=== PATIENT | male | born 1950 | race African-American/Black ===

== ENCOUNTER 2016-09-13 00:12 | Inpatient (IN) | payer OTHER ==
[2016-09-12 02:22] VITALS: BP 147/82; PULSE 82; RESP 20; TEMP 98.3; O2SAT 98
[~2016-09-13] VITALS: Ht 167.6 cm; Wt 106.3 kg
[~2016-09-13 00:12] MED LIST: ADVA250A INH; ALBU17I INH; ALBU6.7H INH; BETH10TA PO; CETI10 PO; CITR500T PO; DUONI NEB; FURO1TAB93 PO; IBUP600T26 PO; LEXA10TA PO; LEXA20TA PO; LISI40TA PO; LORTA5 PO; METO50 PO; NORV10TA PO; NOVOLOGSS; PRED20 PO; PROT40TA PO; REGL5TAB PO; SERO200T PO; TEKT300T PO; TEMA15 PO; TRAM50 PO; VENL75 PO; VITA100020 IM
[2016-09-13 01:40] VITALS: BP 147/82; PULSE 82; RESP 20; TEMP 98.3; O2SAT 98
[2016-09-13] MEDS ORDERED: CETIRIZINE HCL SYRUP 10 MG/10 ML UDC PO PRN (02:45)
[2016-09-13] MEDS ORDERED: BENZONATATE 100 MG CAP PO PRN (02:45)
[2016-09-13] MEDS ORDERED: ALBUTEROL SULFATE 90 MCG/ACT HFA 8 GM INHALER INH PRN ×2 (03:00→08:45)
[2016-09-13] MEDS ORDERED: guaiFENesin/DEXTROMETHORPHAN 200 MG/20 MG/10 ML CUP PO PRN (03:00)
[2016-09-13 06:25] VITALS: BP 128/71; PULSE 71; RESP 16; TEMP 97.8; O2SAT 99
[2016-09-13] MEDS ORDERED: ALBUTEROL SULFATE INH SCH (08:45)
[2016-09-13] MEDS ORDERED: PILL SPLITTER OTHER PRN (09:00)
[2016-09-13] MEDS ORDERED: FAMOTIDINE 20 MG TAB PO SCH (09:00)
[2016-09-13] MEDS ORDERED: METOPROLOL TARTRATE 50 MG TAB PO SCH ×2 (09:00)
[2016-09-13] MEDS ORDERED: ARTIFICIAL TEARS OPTH SOLN 15 ML BTL EACH EYE SCH (09:00)
[2016-09-13] MEDS ORDERED: METHYLCELLULOSE 1000 MG PO SCH (09:00)
[2016-09-13] MEDS ORDERED: DOCUSATE SODIUM 100 MG CAP PO SCH (09:00)
[2016-09-13] MEDS ORDERED: [UNRECOGNIZED DRUG - OTHER] PO SCH (09:00)
[2016-09-13] MEDS ORDERED: FUROSEMIDE 20 MG TAB PO SCH ×2 (09:00)
[2016-09-13] MEDS: DOCUSATE SODIUM 100 MG CAP PO SCH ×2 (09:00→20:28)
[2016-09-13] MEDS ORDERED: VENLAFAXINE HCL XR 75 MG CAP PO SCH ×2 (09:00)
[2016-09-13] MEDS ORDERED: LISINOPRIL 20 MG TAB PO SCH (09:00)
[2016-09-13] MEDS ORDERED: SPIRONOLACTONE 25 MG TAB PO SCH (09:00)
[2016-09-13] MEDS ORDERED: CYANOCOBALAMIN 1000 MCG/ML VIAL IM SCH (09:00)
[2016-09-13] MEDS ORDERED: BUDESONIDE-FORMOTEROL 160/4.5 MCG INHALER INH SCH ×3 (09:00)
[2016-09-13] MEDS: BETHANECHOL CHL 10 MG TAB PO SCH ×3 (09:28→17:20)
[2016-09-13] MEDS: FAMOTIDINE 20 MG TAB PO SCH ×2 (09:29→20:28)
[2016-09-13] MEDS: SPIRONOLACTONE 25 MG TAB PO SCH (09:29)
[2016-09-13] MEDS: METOPROLOL TARTRATE 50 MG TAB PO SCH ×2 (09:29→20:28)
[2016-09-13] MEDS: LISINOPRIL 20 MG TAB PO SCH (09:30)
[2016-09-13] MEDS: VENLAFAXINE HCL XR 75 MG CAP PO SCH (09:30)
[2016-09-13] MEDS: ESCITALOPRAM OXALATE 20 MG TAB PO SCH (09:34)
[2016-09-13] MEDS: FUROSEMIDE 40 MG TAB PO SCH (09:34)
[2016-09-13] MEDS: PANTOPRAZOLE SOD 40 MG DELAYED RELEASE TAB PO SCH ×2 (09:34→20:28)
[2016-09-13] MEDS: ARTIFICIAL TEARS OPTH SOLN 15 ML BTL EACH EYE SCH ×2 (09:35→20:31)
--- NOTE | 2016-09-13 11:24 | HHI.HP ---
Provisional Diagnosis Admission Date Sep 13, 2016 at 01:36 [place] I. Major depressive disorder recurrent severe with psychotic features F 33.3 dementia with behavioral disturbances F of 3.91 Certification of Person's Competence To Provide Express and Informed Consent I have personally examined David Solitario , a person being served at [facility] on, Sep 13, 2016 10:44. Express and informed consent means consent voluntarily given in writing, by a competent person, after sufficient explanation and disclosure of the subject matter involved to enable the person to make a knowing and willful decision without any element of force, fraud, deceit, duress, or other form of constraint or coercion. This person is 18 years of age or older, is not now known to be incompetent to consent to treatment with a guardian advocate, and does not have a health care surrogate or proxy currently making medical treatment decisions. I have found this person to be one of the following: [] Competent to provide express and informed consent, as defined above, for voluntary admission to this facility and is competent to provide express and informed consent for treatment. He/she has the consistent capacity to make well reasoned, willful, and knowing decisions concerning his or her medical or mental health treatment. The person fully and consistently understands the purpose of the admission for examination/placement and is fully capable of personally exercising all rights assured under [place] [] Incompetent to provide express and informed consent to voluntary admission, and this is incompetent to provide express and informed consent to treatment. The person must be transferred to involuntary status and a petition for a guardian advocate filed with the Circuit Court. [x] Refusing to provide express and informed consent to voluntary admission but is competent to provide express and informed consent for treatment. The person must be discharged or transferred to involuntary status. Form shall be completed within 24 hours of a person's arrival at the receiving facility and filed in the clinical record of each person: 1. Admitted on a voluntary basis 2. Permitted to provide express and informed consent to his/her own treatment 3. Allowed to transfer from involuntary to voluntary status 4. Prior to permitting a person to consent to his or her own treatment after having been previously found incompetent to consent to treatment. History of Present Illness Capacity: Has Capacity HPI Patient is a 66-year-old Afro-[place]ape [place]dean male initially brought to [facility] after suicide attempt by inhaling aerosol deodorant spray patient was Garcia acted at that facility dated 09/12/19 by a Scottie Dempsey at 1830 p.m. stating in the old deodorant aerosol spray as a suicidal attempt. Patient seen screen of at ED urine toxicology negative bladder alcohol level negative. At the present time patient sitting quietly in his room with nurse Thang and myself. Patient is alert to self and place though somewhat confused as to time and situation. Is a was somewhat confusing history about perhaps living in a PRISON at this time is uncertain how long he has been there. He does see his head increased depression stating his adult son of less than a year ago is causing him to be depressed, also recalling the of other patient's in his family of origin. He states he does sleep okay and his appetite is okay, there is some increased social isolation and some irritability. There is a the past week or 2 the increase suicidal ideation. With the suicide attempt. Denies any alcohol or drug use related to this. Of interest patient has extensive EMR record with us here at [facility] is been documentation of various suicide attempts in the past few years including ingestion of bleach twice. I did do a consultation on this gentleman in the summer of 2012 for similar episode. Patient also has a past history though a long history of cocaine abuse with multiple positive urine toxicology's at this facility. He also has been followed for multiple medical conditions including COPD diabetes. Patient stated that sometime in this in the fairly recent past he did have a visual hallucination of his father coming into his room. At this time patient does meet criteria for involuntary psychiatric hospitalization under the Garcia act I'll do first opinion requests second opinion. Though I do feel he has capacity to work with us related to his medication. We will have a hospitalist consult was patient does have an extensive medication reconciliation list. The need to gain further information about patient's living situation also. For now we'll continue her psychotropic medications no change Review of Systems ROS Limitations: Altered Mental Status (somewhat confused) Constitutional: DENIES: Diaphoretic episodes, Fatigue, Fever, Weight gain, Weight loss, Chills, Dizziness, Change in appetite, Night Sweats Endocrine: DENIES: Heat/cold intolerance, Polydipsia, Polyuria, Polyphagia Eyes: DENIES: Blurred vision, Diplopia, Eye inflammation, Eye pain, Vision loss , Photosensitivity, Double Vision Ears, nose, mouth, throat: DENIES: Tinnitus, Hearing loss, Vertigo, Nasal discharge, Oral lesions, Throat pain, Hoarseness, Ear Pain, Running Nose, Epistaxis, Sinus Pain, Toothache, Odynophagia Respiratory: DENIES: Apneas, Cough, Snoring, Wheezing, Hemoptysis, Sputum production, Shortness of breath Cardiovascular: DENIES: Chest pain, Palpitations, Syncope, Dyspnea on Exertion , PND, Lower Extremity Edema, Orthopnea, Claudication Gastrointestinal: DENIES: Abdominal pain, Black stools, Bloody stools, Constipation, Diarrhea, Nausea, Vomiting, Difficulty Swallowing, Anorexia Genitourinary: DENIES: Sexual dysfunction, Urinary frequency, Urinary incontinence, Urgency, Hematuria, Dysuria, Nocturia, Penile Discharge, Testicular Pain, Testicular Swelling Musculoskeletal: DENIES: Joint pain, Muscle aches, Stiffness, Joint Swelling, Back pain, Neck pain Integumentary: DENIES: Abnormal pigmentation, Nail changes, Pruritus, Rash Hematologic/lymphatic: DENIES: Bruising, Lymphadenopathy Immunologic/allergic: DENIES: Eczema, Urticaria Neurologic: DENIES: Abnormal gait, Headache, Localized weakness, Paresthesias, Seizures, Speech Problems, Tremor, Poor Balance Psychiatric: COMPLAINS OF: Confusion (mild), Depression, Hallucinations (vague referral to visual hallu), Suicidal Ideation (overdose inhaling deodorant aerosol), DENIES: Anxiety, Mood changes, Agitation, Homicidal Ideation, Delusions Past Psych History Psychological trauma history Patient denies physical or sexual abuse Violence risk - others (6 mos) Low Violence risk - self (6 mos) Patient had suicide attempt inhaling deodorant aerosol Substance Abuse History Drugs/Alcohol past 12 months Denies Past Family Social History Coded Allergies: No Known Allergies (Verified , 10/14/13) Past Medical History Multiple complex please see MedSurg assessment Active Scripts Prednisone (Deltasone)20 Mg Tab1 Tab PO BID #10 TAB Prov:Marko Hernandez MD 11/30/14 Albuterol/Ipratropium (Resp: Albuterol/Ipratropium 2.5 Mg/0.5 Mg)1 Amp Nebu1 Amp NEB Q6H #30 Prov:Humza Agarwal MD 10/14/13 Albuterol Sulfate (Proventil Hfa)6.7 Gm Aero2 Puff INH Q4 PRN (WHEEZING) #1 Ref 1 * SHAKE WELL BEFORE USE * Prov:Tosin Mares MD 07/08/13 Ibuprofen 600 Mg Eug814 Mg PO TID PRN (PAIN) #20 Prov:ART GREGORY M.D. 07/03/13 Tramadol Hcl (Ultram)50 Mg Tab1 Tab PO Q6 PRN (PAIN) #20 FOR PAIN Prov:ART GREGORY M.D. 07/03/13 Hydrocodone/Acetaminophen 5 mg/325 mg 1 Tab Tab1 Tab PO Q6H PRN (PAIN SCALE 5 TO 10) #12 TAB Prov:SHAMIKA FOREMAN M.D. 07/01/13 Reported Medications Venlafaxine HCl (Effexor 75 Mg Tab)75 Mg Tab75 Mg PO DAILY 11/30/14 Quetiapine Fumarate 200 mg (Seroquel 200 mg)200 Mg Tsm125 Mg PO HS 11/30/14 Methylcellulose (Laxative) (Citrucel)500 Mg Tab1,000 Mg PO DAILY 11/30/14 Miscellaneous (Vitamin B-12 Extended Rel)1,000 Mcg Inj1,000 Mcg IM Q30D 11/30/14 Bethanechol Chloride (Bethanechol Chloride)10 Mg Tab10 Mg PO Q8 11/30/14 Temazepam 15 mg (Restoril 15 mg)15 Mg Cap30 Cap PO HS 11/30/14 Reglan5 M1 5 Mg Tab1 Tab PO TID PRN (NAUSEA) 11/30/14 Escitalopram Oxalate (Lexapro)20 Mg Tab20 Mg PO DAILY 11/30/14 Escitalopram Oxalate (Lexapro)10 Mg Tab10 Mg PO DAILY 11/30/14 Cetirizine HCl (Zyrtec 10 Mg Tab)10 Mg Tab10 Mg PO DAILY 11/30/14 Insulin Aspart (Novolog Insulin Supplemental Scale)Unknown Strength InjUnknown Dose .XX 10/14/13 Advair Disku1 250 Mcg/50 Mcg Inhp1 Puff INH BID 10/14/13 Norvasc 10 Mg Tab10 Mg PO DAILY 30 Days 06/08/13 Pantoprazole Sod (Protonix)40 Mg Tabdr40 Mg PO BID 05/21/13 Lisinopril 40 mg (Prinivil 40 mg)40 Mg Tab40 Mg PO DAILY 05/06/13 Metoprolol Tartrate (Lopressor)50 Mg Tab50 Mg PO BID 03/03/13 Albuterol Sulfate (Proventil Mdi)17 Gm Aero2 Puff INH QIDPRN #1 11/04/12 Spea195 300 Mg Iza515 Mg PO DAILY 11/03/12 Furosemide (Lasix)40 Mg Tab40 Mg PO DAILY 11/03/12 Current Medications Medications (Trade) Dose Ordered Sig/Jean Route Start Time Stop Time Status Last Admin (Tessalon) 100 mg TID PRN PO 09/13/16 02:45 (Sullivan 5-325 Mg) 1 tab Q8H PRN PO 09/13/16 03:00 (Robitussin Dm 200-20 Mg/10 ml Liq) 10 ml Q8H PRN PO 09/13/16 03:00 (Proair Hfa Inh) 2 puff QID PRN INH 09/13/16 03:00 (Urecholine) 10 mg TID PO 09/13/16 09:00 09/13/16 09:28 (Prinivil) 40 mg DAILY PO 09/13/16 09:00 09/13/16 09:30 (Xalatan 0.005% Opth Soln) 1 drop HS EACH EYE 09/13/16 21:00 (Tears Naturale Opth Soln) 1 drop BID EACH EYE 09/13/16 09:00 09/13/16 09:35 (Pepcid) 20 mg BID PO 09/13/16 09:00 09/13/16 09:29 (Norvasc) 10 mg DAILY PO 09/13/16 09:00 09/13/16 09:29 (Desyrel) 50 mg HS PRN PO 09/13/16 03:30 (Aldactone) 25 mg DAILY PO 09/13/16 09:00 09/13/16 09:29 (Colace) 100 mg BID PO 09/13/16 09:00 (Levemir Inj) 18 units HS SQ 09/13/16 21:00 (Lopressor) 50 mg BID PO 09/13/16 09:00 09/13/16 09:29 (Symbicort 160-4.5 Inh) 2 puff BID INH 09/13/16 09:00 09/13/16 09:00 (ZyrTEC) 10 mg DAILY PO 09/13/16 09:00 (Lexapro) 20 mg DAILY PO 09/13/16 09:00 09/13/16 09:34 (Lasix) 40 mg DAILY PO 09/13/16 09:00 09/13/16 09:34 (Protonix) 40 mg BID PO 09/13/16 09:00 09/13/16 09:34 (Deltasone) 20 mg BID PO 09/13/16 09:00 (SEROquel) 200 mg HS PO 09/13/16 21:00 (Symbicort 160-4.5 Inh) 2 puff BID INH 09/13/16 09:00 Non-Formulary Medication 300 mg DAILY PO 09/13/16 09:00 Hold Non-Formulary Medication 1,000 mg DAILY PO 09/13/16 09:00 Hold (Vitamin B12 Inj) 1,000 mcg Q30D IM 09/13/16 09:00 (Reglan) 5 mg TID PRN PO 09/13/16 08:45 (Effexor Xr) 75 mg DAILY PO 09/13/16 09:00 09/13/16 09:30 (Macrobid) 100 mg BIDPC PO 09/13/16 09:00 09/23/16 08:00 (Pill Splitter) 1 ea UNSCH PRN OTHER 09/13/16 09:00 Family History Multiple deaths in family of origin denies history mental illness Social History Patient states he lives in [place] recent of his adult some, long history cocaine abuse though none recent Patient's Strengths (min. 2) Patient verbal intellectual self care appears cooperative Physical Exam Patient seen screened in ED of [facility] reviewed and agreed with vital signs blood pressure 128/71 pulse 71 respirations 16 Vital Signs Vital Signs Date Time Temp Pulse Resp B/P Pulse Ox O2 Delivery O2 Flow Rate FiO2 09/13/16 06:25 97.8 71 16 128/71 99 Mental Status Examination Alert Afro-[place] male appears stated age to self otherwise confused as to situation date and time and place. Mini-Mental status exam done by medical student irina scored at 13 out of 30 Appearance Clean and neat Speech: Hesitant, Circumstantial, Tangential Orientation: Person Memory: Impaired (describe) Thought Process: Linear, Tangential Thought Content: Ideas of Reference Hallucination Type: Visual (vague history of seeing father) Attention and Concentration: Other (poor) Suicidal Ideation: Yes Previous Suicide Attempts: Yes Homicidal Ideation: No Previous Homicide Attempts: No Insight: Poor Judgement: Poor Affect: Other (slight decreased range and intensity) Mood: Sad Motor Activity: Abnormal gait-specify (use his walker) Assessment & Plan Problem List: (1) Major depressive disorder, recurrent, severe with psychotic features ICD Code: F33.3 (2) Dementia w behavior dist ICD Code: F03.91 Assessment & Plan Estimated LOS: 5-7 days at this time patient meets criteria for involuntary psychiatric hospitalization I'll do first opinion requests a second opinion. We 'll continue medication per the med reconciliation form. Will attempt to get further information about his past history and his placement Discharge Planning To be determined Request HC Surrog/Guard Advoc?: Javid Duckworth MD Sep 13, 2016 11:24
[2016-09-13] MEDS ORDERED: DEXTROSE 50% IN WATER 50 ML VIAL(D50) IV PUSH PRN (11:30)
[2016-09-13] MEDS ORDERED: GLUCAGON 1 MG/ML VIAL OTHER PRN (11:30)
[2016-09-13] MEDS: LOW DOSE INSULIN NOVOLOG SUPPLEMENTAL SCALE SQ SCH ×2 (11:32→17:00)
[2016-09-13] MEDS: CETIRIZINE HCL 10 MG TAB PO SCH (12:12)
[2016-09-13] MEDS: METOCLOPRAMIDE HCL 10 MG TAB PO PRN (12:25)
[2016-09-13] MEDS: NITROFURANTOIN MONOHYD MACROCR 100 MG CAP PO SCH ×2 (12:25→17:20)
[2016-09-13] MEDS: predniSONE 20 MG TAB PO SCH ×2 (12:25→20:28)
[2016-09-13] MEDS: ACETAMINOPHEN/HYDROcodone 325 MG/5 MG TAB PO PRN (16:33)
[2016-09-13 19:23] VITALS: BP 137/58; PULSE 69; RESP 16; TEMP 97.8; O2SAT 100
[2016-09-13] MEDS: QUEtiapine FUMARATE 200 MG TAB PO SCH (20:28)
[2016-09-13] MEDS: traZODone HCL 50 MG TAB PO PRN (20:28)
[2016-09-13] MEDS: LATANOPROST 0.005% OPHT SOLN 2.5 ML BTL EACH EYE SCH (20:31)
[2016-09-13] MEDS: INSULIN DETEMIR 100 UNITS/ML VIAL SQ SCH (20:31)
[2016-09-13] MEDS ORDERED: INSULIN DETEMIR 100 UNITS/ML VIAL SQ SCH (21:00)
[2016-09-13] MEDS ORDERED: LATANOPROST 0.005% OPHT SOLN 2.5 ML BTL EACH EYE SCH (21:00)
[2016-09-14 06:00] VITALS: BP 174/69; PULSE 70; RESP 18; TEMP 98.2; O2SAT 97
[2016-09-14] MEDS: PANTOPRAZOLE SOD 40 MG DELAYED RELEASE TAB PO SCH ×2 (09:00→20:35)
[2016-09-14] MEDS: CETIRIZINE HCL 10 MG TAB PO SCH (09:36)
[2016-09-14] MEDS: BETHANECHOL CHL 10 MG TAB PO SCH ×3 (09:36→19:57)
[2016-09-14] MEDS: DOCUSATE SODIUM 100 MG CAP PO SCH ×2 (09:36→20:34)
[2016-09-14] MEDS: ESCITALOPRAM OXALATE 20 MG TAB PO SCH (09:36)
[2016-09-14] MEDS: FAMOTIDINE 20 MG TAB PO SCH ×2 (09:36→20:34)
[2016-09-14] MEDS: ARTIFICIAL TEARS OPTH SOLN 15 ML BTL EACH EYE SCH ×2 (09:36→19:57)
[2016-09-14] MEDS: predniSONE 20 MG TAB PO SCH ×2 (09:38→20:35)
[2016-09-14] MEDS: VENLAFAXINE HCL XR 75 MG CAP PO SCH (09:40)
[2016-09-14] MEDS: FUROSEMIDE 40 MG TAB PO SCH (09:40)
[2016-09-14] MEDS: SPIRONOLACTONE 25 MG TAB PO SCH (09:40)
[2016-09-14] MEDS: METOPROLOL TARTRATE 50 MG TAB PO SCH ×2 (09:41→20:35)
[2016-09-14] MEDS: NITROFURANTOIN MONOHYD MACROCR 100 MG CAP PO SCH ×2 (09:42→19:57)
[2016-09-14] MEDS: LISINOPRIL 20 MG TAB PO SCH (09:43)
--- NOTE | 2016-09-14 11:12 | HHI.PYPN ---
Subjective Remarks Patient seen in his room with medical student irina, patient overall calm somewhat pleasantly confused, compliant medications, also complains of depression though somewhat vague related to suicidality of voices today Review of Systems Except as stated in HPI: all other systems reviewed are Neg Objective Alert: Yes [place]: Person Mood: Calm, Depressed Affect: Restricted Memory Intact: Comment (very poor) Hallucinations: Other Delusions: No Delusion Type: Other (loudly vigilant) Suicidal: Intent (vague) Homicidal: Ideation Insight/Judgement Very poor Vitals/IOs Vital Signs Date Time Temp Pulse Resp B/P Pulse Ox O2 Delivery O2 Flow Rate FiO2 09/14/16 06:00 98.2 70 18 174/69 97 Assessment & Plan Problem List: (1) Major depressive disorder, recurrent, severe with psychotic features ICD Code: F33.3 (2) Dementia w behavior dist ICD Code: F03.91 Assessment & Plan Estimated LOS: days patient remains confused and depressed, will suicidality. Compliant medications. For now continue treatment Justification for Cont. Inpt. At this time patient was really decompensate if placed in a lower level of care Discharge Planning To be determined Request HC Surrog/Guard Advoc?: No Javid Bran MD Sep 14, 2016 11:11
[2016-09-14] MEDS: LOW DOSE INSULIN NOVOLOG SUPPLEMENTAL SCALE SQ SCH ×2 (12:00→16:56)
--- NOTE | 2016-09-14 14:54 | PD.CONS ---
HPI Service [facility] Consult Requested By Psychiatry Reason for Consult Medical management and shortness of breath. Primary Care Physician Unknown Diagnoses: History of Present Illness This is a 66-year-old male with history of COPD, osteoarthritis and diabetes mellitus presenting to the hospital with suicidal ideations, patient is Radha mckeon. Patient was admitted to psych unit for further treatment. We are being consulted for medical comanagement and shortness of breath. Per patient, he has been more short of breath than usual. Associated with cough, but nonproductive. He denies any chest pain or fever. No nausea, vomiting or diarrhea. No recent fever or chills. Patient is not the best historian. He denies any oxygen use. Review of Systems ROS Limitations: Poor Historian Past Family Social History Allergies: Coded Allergies: No Known Allergies (Verified , 10/14/13) Past Medical History COPD Diabetes mellitus Osteoarthritis GERD Asthma Questionable bipolar disorder Anxiety Depression ? CHF/cardiomyopathy Dyslipidemia -History mostly is home the medical chart. Past Surgical History Patient denies any previous surgery however medical records reveal more fragment removal from patient's leg and right leg foreign body removal as a child. Reported Medications Deltasone (Prednisone) 20 Mg Tab 1 Tab PO BID Resp: Albuterol/Ipratropium 2.5 Mg/0.5 Mg (Albuterol/Ipratropium) 1 Amp Nebu 1 Amp NEB Q6H Proventil Hfa (Albuterol Sulfate) 6.7 Gm Aero 2 Puff INH Q4 PRN * SHAKE WELL BEFORE USE * Ibuprofen 600 Mg Tab 600 Mg PO TID PRN Ultram (Tramadol HCl) 50 Mg Tab 1 Tab PO Q6 PRN FOR PAIN Hydrocodone/Acetaminophen 5 mg/325 mg 1 Tab Tab 1 Tab PO Q6H PRN Effexor 75 Mg Tab (Venlafaxine HCl) 75 Mg Tab 75 Mg PO DAILY Seroquel 200 mg (Quetiapine Fumarate) 200 Mg Tab 200 Mg PO HS Citrucel (Methylcellulose) 500 Mg Tab 1,000 Mg PO DAILY Vitamin B-12 Extended Rel (Miscellaneous Medication) 1,000 Mcg Inj 1,000 Mcg IM Q30D Bethanechol Chloride 10 Mg Tab 10 Mg PO Q8 Restoril 15 mg (Temazepam) 15 Mg Cap 30 Cap PO HS Reglan5 M1 5 Mg Tab 1 Tab PO TID PRN Lexapro (Escitalopram Oxalate) 20 Mg Tab 20 Mg PO DAILY Lexapro (Escitalopram Oxalate) 10 Mg Tab 10 Mg PO DAILY Zyrtec 10 Mg Tab (Cetirizine HCl) 10 Mg Tab 10 Mg PO DAILY Novolog Insulin Supplemental Scale (Insulin Aspart) Unknown Strength Inj Unknown Dose .XX Advair Disku1 250 Mcg/50 Mcg Inhp 1 Puff INH BID Norvasc (Amlodipine Besylate) 10 Mg Tab 10 Mg PO DAILY 30 Days Protonix (Pantoprazole Sodium) 40 Mg Tabdr 40 Mg PO BID Prinivil 40 mg (Lisinopril) 40 Mg Tab 40 Mg PO DAILY Lopressor (Metoprolol Tartrate) 50 Mg Tab 50 Mg PO BID Proventil Mdi (Albuterol Sulfate) 17 Gm Aero 2 Puff INH QIDPRN [id number] 300 Mg Tab 300 Mg PO DAILY Lasix (Furosemide) 40 Mg Tab 40 Mg PO DAILY Family History Difficult to obtain, allegedly no history of diabetes or heart problems in the family Social History I meds to using cocaine and smokes cigarettes about 5 cigarettes a day for many years Physical Exam Vital Signs Vital Signs Date Time Temp Pulse Resp B/P Pulse Ox O2 Delivery O2 Flow Rate FiO2 09/14/16 06:00 98.2 70 18 174/69 97 09/13/16 19:23 97.8 69 16 137/58 100 Physical Exam Not in distress, well-nourished, looks stated age PERRL, pink conjunctiva without injection, anicteric Nose without bleeding, airway patent, oropharynx clear Supple neck, no masses or thyromegaly, trachea midline Normal rate and regular rhythm, no murmurs gallops or rubs appreciated. Decreased breath sounds, no wheezing or crackles. Normal bowel sounds, soft, non-tender, nondistended, no guarding. Extremities without clubbing, cyanosis, trace edema. No rash of generalized distribution. Skin is warm and dry. AAO to self and place, no deficits. Assessment and Plan Assessment and Plan This is a 66-year-old male with history of COPD, diabetes mellitus admitted to psych unit for suicidal ideations Suicidal ideations, depression-further management per psychiatry COPD-does not sound to be in exacerbation on examination but patient complains of shortness of breath, restart prednisone 20 mg twice a day, check chest x-ray , check CBC and BMP. DuoNeb's as needed. Check BNP, patient has history of CHF , restart Lasix. Start DuoNeb's [id number]. Continue Tessalon. Chronic pain-restart tramadol and Lortab Diabetes mellitus- check hemoglobin A1c, sliding scale insulin for now Levemir per home dose Hypertension-restart Norvasc, lisinopril, Lopressor Thank you very much for this consultation we will follow along with you. Cleve Dobbins MD Sep 14, 2016 14:54
--- NOTE | 2016-09-14 15:38 | RADRPT ---
EXAM DATE/TIME: 09/14/2016 15:15 [place] COMPARISON: No previous studies available for comparison. INDICATIONS : Patient complains of chest pain and shortness of breath. MEDICAL HISTORY : None. SURGICAL HISTORY : None. ENCOUNTER: Initial ACUITY: 1 month PAIN SCORE: 4/10 LOCATION: Chest FINDINGS: Minimal increased interstitial markings are noted consistent with possible minimal congestion. Clinic al correlation is recommended. The heart and mediastinal structures are normal. The pulmonary vascul ar pattern is normal. The lungs are clear. Degenerative changes are noted throughout the thoracic spine. CONCLUSION: ` No acute cardiopulmonary disease. Sadi Olivas MD on September 14, 2016 at 15:27 Board Certified Radiologist. This report was verified electronically.
[2016-09-14 17:33] LABS: AUTOMATED NEUTROPHIL # 8.7 TH/MM3 (1.8-7.7); BASOPHIL % 0.3 % (0.0-2.0); HEMATOCRIT 41.4 % (39.0-51.0); HEMO FLAGS DIFF FINAL; LYMPH % 16.5 % (9.0-44.0); LYMPHOCYTE # 1.8 TH/MM3 (1.0-4.8); MEAN CELL VOLUME 93.4 FL (80.0-100.0); MEAN CORPUSCULAR HEMOGLOBIN 31.7 PG (27.0-34.0); MONO % 3.3 % (0.0-8.0); NEUT % 79.9 % (16.0-70.0); PLATELET COUNT 250 TH/MM3 (150-450); RED BLOOD COUNT 4.44 MIL/MM3 (4.50-5.90); RED CELL DISTRIBUTION WIDTH 15.4 % (11.6-17.2); WHITE BLOOD COUNT 10.8 TH/MM3 (4.0-11.0)
[2016-09-14 17:56] LABS: ANION GAP 8 MEQ/L (5-15); BICARBONATE 27.7 MEQ/L (21.0-32.0); BLOOD UREA NITROGEN 17 MG/DL (7-18); CHLORIDE 103 MEQ/L (98-107); GLOMERULAR FILTRATION RATE 61 ML/MIN (>89); MAGNESIUM 2.6 MG/DL (1.5-2.5); POTASSIUM 3.9 MEQ/L (3.5-5.1); SODIUM (NA) 139 MEQ/L (136-145)
[2016-09-14 19:28] VITALS: BP 132/66; PULSE 79; RESP 18; TEMP 98.6; O2SAT 98
[2016-09-14] MEDS: LATANOPROST 0.005% OPHT SOLN 2.5 ML BTL EACH EYE SCH (19:57)
[2016-09-14] MEDS: QUEtiapine FUMARATE 200 MG TAB PO SCH (20:34)
[2016-09-14] MEDS: INSULIN DETEMIR 100 UNITS/ML VIAL SQ SCH (20:36)
[2016-09-14] MEDS: RESP: ALBUTEROL 2.5 MG/IPRATROPIUM 0.5 MG NEB (SCH) NEB (23:30)
[2016-09-15 06:06] VITALS: BP 123/82; PULSE 60; RESP 18; TEMP 97.9; O2SAT 97
[2016-09-15] MEDS: LOW DOSE INSULIN NOVOLOG SUPPLEMENTAL SCALE SQ SCH ×3 (08:00→17:00)
[2016-09-15] MEDS ORDERED: [UNRECOGNIZED DRUG - OTHER] PO SCH (09:00)
[2016-09-15] MEDS: RESP: ALBUTEROL 2.5 MG/IPRATROPIUM 0.5 MG NEB (SCH) NEB ×2 (09:11→15:00)
[2016-09-15] MEDS: DOCUSATE SODIUM 100 MG CAP PO SCH ×2 (09:30→20:51)
[2016-09-15] MEDS: METOPROLOL TARTRATE 50 MG TAB PO SCH ×2 (09:30→20:51)
[2016-09-15] MEDS: VENLAFAXINE HCL XR 75 MG CAP PO SCH (09:30)
[2016-09-15] MEDS: SPIRONOLACTONE 25 MG TAB PO SCH (09:30)
[2016-09-15] MEDS: NITROFURANTOIN MONOHYD MACROCR 100 MG CAP PO SCH ×2 (09:30→16:39)
[2016-09-15] MEDS: CETIRIZINE HCL 10 MG TAB PO SCH (09:30)
[2016-09-15] MEDS: ESCITALOPRAM OXALATE 20 MG TAB PO SCH (09:30)
[2016-09-15] MEDS: PANTOPRAZOLE SOD 40 MG DELAYED RELEASE TAB PO SCH ×2 (09:30→20:51)
[2016-09-15] MEDS: ARTIFICIAL TEARS OPTH SOLN 15 ML BTL EACH EYE SCH ×2 (09:31→20:53)
[2016-09-15] MEDS: predniSONE 20 MG TAB PO SCH (09:31)
[2016-09-15] MEDS: FUROSEMIDE 40 MG TAB PO SCH (09:31)
[2016-09-15] MEDS: BETHANECHOL CHL 10 MG TAB PO SCH ×3 (09:31→16:39)
[2016-09-15] MEDS: LISINOPRIL 20 MG TAB PO SCH (09:31)
[2016-09-15] MEDS: FAMOTIDINE 20 MG TAB PO SCH ×2 (09:31→20:51)
[2016-09-15 10:39] LABS: HEMOGLOBIN A1a 1.2 %; HEMOGLOBIN A1b 0.9 %; HEMOGLOBIN Ao 84.1 %; HEMOGLOBIN F 1.4 %; HEMOGLOBIN P3 3.8 %
[2016-09-15] MEDS: ACETAMINOPHEN/HYDROcodone 325 MG/5 MG TAB PO PRN ×2 (10:58→20:51)
--- NOTE | 2016-09-15 11:45 | HHI.PR ---
Subjective Remarks Follow up COPD, DM, HTN. Patient seen at inpatient psychiatric center. Patient reports shortness of breath is better. Denies shortness of breath cough chest pain fevers chills nausea vomiting diarrhea constipation Objective Vitals Vital Signs Date Time Temp Pulse Resp B/P Pulse Ox O2 Delivery O2 Flow Rate FiO2 09/15/16 06:06 97.9 60 18 123/82 97 09/14/16 19:28 98.6 79 18 132/66 98 I/O 09/14/16 09/14/16 09/14/16 09/15/16 09/15/16 09/15/16 07:00 15:00 23:00 07:00 15:00 23:00 Intake Total 840 ml 600 ml 360 ml Balance 840 ml 600 ml 360 ml Intake Oral 840 ml 600 ml 360 ml # Voids 2 1 2 # Bowel Movements 2 Result Diagram: 09/14/16 17109/14/16 1712 Objective Remarks Not in distress, well-nourished, looks stated age PERRL, pink conjunctiva without injection, anicteric Nose without bleeding, airway patent, oropharynx clear Supple neck, no masses or thyromegaly, trachea midline Normal rate and regular rhythm, no murmurs gallops or rubs appreciated. Decreased breath sounds, no wheezes rhonchi or rales Normal bowel sounds, soft, non-tender, nondistended, no guarding. Extremities without clubbing, cyanosis, trace edema. No rash of generalized distribution. Skin is warm and dry. AAO to self and place, no deficits. A/P Assessment and Plan This is a 66-year-old male with history of COPD, diabetes mellitus admitted to psych unit for suicidal ideations Suicidal ideations, depression-further management per psychiatry COPD-does not sound to be in exacerbation on examination. Denies shortness of breath, Taper prednisone - will decrease to 20 mg daily, chest x-ray personally reviewed by myself as well as Dr. Dobbins no acute disease process identified, Continue DuoNeb's scheduled and as needed. BNP 9, patient has history of CHF, continue Lasix. Continue Tessalon. Chronic pain-restart tramadol and Lortab Diabetes mellitus- check hemoglobin A1c, sliding scale insulin for now Levemir per home dose Hypertension-restart Norvasc, lisinopril, Lopressor Discussed with patient RN and Jenny Mendez Sep 15, 2016 11:45
--- NOTE | 2016-09-15 12:00 | HHI.PYPN ---
Subjective Remarks Patient was seen and case discussed with nursing. Patient is pleasant and cooperative with exam. This is a second opinion from Dr. Bran. Patient minimizes his suicide attempt. He admits to drinking bleach and using inhalant. His compliant with his medications. Describes his mood is depressed. Stressor is the passing of a sun "some time ago." Objective Alert: Yes [place]: Person Mood: Calm, Depressed Affect: Restricted Memory Intact: Comment (very poor) Hallucinations: Other Delusions: No Delusion Type: Other (loudly vigilant) Suicidal: Intent (vague) Homicidal: Ideation Insight/Judgement Poor Labs Test 09/14/16 17:12 White Blood Count 10.8 TH/MM3 Red Blood Count 4.44 MIL/MM3 Hemoglobin 14.1 GM/DL Hematocrit 41.4 % Mean Corpuscular Volume 93.4 FL Mean Corpuscular Hemoglobin 31.7 PG Mean Corpuscular Hemoglobin 34.0 % Concent Red Cell Distribution Width 15.4 % Platelet Count 250 TH/MM3 Mean Platelet Volume 7.8 FL Neutrophils (%) (Auto) 79.9 % Lymphocytes (%) (Auto) 16.5 % Monocytes (%) (Auto) 3.3 % Eosinophils (%) (Auto) 0.0 % Basophils (%) (Auto) 0.3 % Neutrophils # (Auto) 8.7 TH/MM3 Lymphocytes # (Auto) 1.8 TH/MM3 Monocytes # (Auto) 0.4 TH/MM3 Eosinophils # (Auto) 0.0 TH/MM3 Basophils # (Auto) 0.0 TH/MM3 CBC Comment DIFF FINAL Differential Comment B-Type Natriuretic Peptide 9 PG/ML Sodium Level 139 MEQ/L Potassium Level 3.9 MEQ/L Chloride Level 103 MEQ/L Carbon Dioxide Level 27.7 MEQ/L Anion Gap 8 MEQ/L Blood Urea Nitrogen 17 MG/DL Creatinine 1.41 MG/DL Estimat Glomerular Filtration 61 ML/MIN Rate Random Glucose 150 MG/DL Hemoglobin A1c 6.1 % Calcium Level 8.5 MG/DL Magnesium Level 2.6 MG/DL Vitals/IOs Vital Signs Date Time Temp Pulse Resp B/P Pulse Ox O2 Delivery O2 Flow Rate FiO2 09/15/16 06:06 97.9 60 18 123/82 97 Intake and Output 09/14/16 09/14/16 09/15/16 08:00 16:00 00:00 Intake Total 840 ml 600 ml Balance 840 ml 600 ml Assessment & Plan Problem List: (1) Major depressive disorder, recurrent, severe with psychotic features ICD Code: F33.3 (2) Dementia w behavior dist ICD Code: F03.91 Assessment & Plan I agree with the first opinion to continue petition. Criteria include recent suicide attempts and depressed mood Justification for Cont. Inpt. Patient will decompensate in a less restrictive setting Request HC Surrog/Guard Advoc?: No Anthony Valenzuela DO Sep 15, 2016 12:00
[2016-09-15 18:00] VITALS: BP 153/67; PULSE 72; RESP 18; TEMP 98.3; O2SAT 95
[2016-09-15] MEDS: traZODone HCL 50 MG TAB PO PRN (20:51)
[2016-09-15] MEDS: QUEtiapine FUMARATE 200 MG TAB PO SCH (20:51)
[2016-09-15] MEDS: LATANOPROST 0.005% OPHT SOLN 2.5 ML BTL EACH EYE SCH (20:53)
[2016-09-15] MEDS: INSULIN DETEMIR 100 UNITS/ML VIAL SQ SCH (20:53)
[2016-09-16] MEDS: RESP: ALBUTEROL 2.5 MG/IPRATROPIUM 0.5 MG NEB (SCH) NEB ×4 (00:31→23:49)
[2016-09-16 05:46] VITALS: BP 112/63; PULSE 56; RESP 17; TEMP 98; O2SAT 98
[2016-09-16] MEDS: LOW DOSE INSULIN NOVOLOG SUPPLEMENTAL SCALE SQ SCH ×3 (08:00→16:18)
[2016-09-16] MEDS: ARTIFICIAL TEARS OPTH SOLN 15 ML BTL EACH EYE SCH ×2 (08:42→20:40)
[2016-09-16] MEDS: METOPROLOL TARTRATE 50 MG TAB PO SCH ×2 (08:43→20:40)
[2016-09-16] MEDS: PANTOPRAZOLE SOD 40 MG DELAYED RELEASE TAB PO SCH ×2 (08:43→20:40)
[2016-09-16] MEDS: ACETAMINOPHEN/HYDROcodone 325 MG/5 MG TAB PO PRN (08:43)
[2016-09-16] MEDS: VENLAFAXINE HCL XR 75 MG CAP PO SCH (08:43)
[2016-09-16] MEDS: DOCUSATE SODIUM 100 MG CAP PO SCH ×2 (08:43→20:40)
[2016-09-16] MEDS: BETHANECHOL CHL 10 MG TAB PO SCH ×3 (08:43→16:10)
[2016-09-16] MEDS: CETIRIZINE HCL 10 MG TAB PO SCH (08:43)
[2016-09-16] MEDS: ESCITALOPRAM OXALATE 20 MG TAB PO SCH (08:44)
[2016-09-16] MEDS: NITROFURANTOIN MONOHYD MACROCR 100 MG CAP PO SCH ×2 (08:44→16:10)
[2016-09-16] MEDS: FAMOTIDINE 20 MG TAB PO SCH ×2 (08:44→20:40)
[2016-09-16] MEDS: SPIRONOLACTONE 25 MG TAB PO SCH (08:44)
[2016-09-16] MEDS: FUROSEMIDE 40 MG TAB PO SCH (08:44)
[2016-09-16] MEDS: predniSONE 20 MG TAB PO SCH (08:44)
[2016-09-16] MEDS: LISINOPRIL 20 MG TAB PO SCH (08:44)
--- NOTE | 2016-09-16 12:00 | HHI.PYPN ---
Subjective Remarks Patient was seen and case discussed with nursing. Patient is complaining of periumbilical abdominal pain. Describes it as a 9 out of 10 but states he does not appear to be in significant pain during the interview. Mood is improved. Denies suicidal ideations thought or plan. Compliant with medications Objective Alert: Yes [place]: Person Mood: Calm, Depressed Affect: Restricted Memory Intact: Comment (very poor) Hallucinations: Other Delusions: No Delusion Type: Other (loudly vigilant) Suicidal: Intent (vague) Homicidal: Ideation Insight/Judgement Poor Vitals/IOs Vital Signs Date Time Temp Pulse Resp B/P Pulse Ox O2 Delivery O2 Flow Rate FiO2 09/16/16 05:46 98.0 56 17 112/63 98 Intake and Output 09/15/16 09/15/16 09/16/16 08:00 16:00 00:00 Intake Total 360 ml 1560 ml Balance 360 ml 1560 ml Assessment & Plan Problem List: (1) Major depressive disorder, recurrent, severe with psychotic features ICD Code: F33.3 (2) Dementia w behavior dist ICD Code: F03.91 Assessment & Plan Medicine consults Justification for Cont. Inpt. Patient will decompensate in a less restrictive setting Request HC Surrog/Guard Advoc?: No Anthony Valenzuela DO Sep 16, 2016 12:00
--- NOTE | 2016-09-16 13:34 | HHI.PR ---
Subjective Remarks Follow up COPD, DM, HTN. Patient seen at inpatient psychiatric center. Patient reports shortness of breath is about the same. Complaints of abdominal pain which started last night. Patient describes the pain as a constant cramping 10 out of 10 in severity. Patient reports his last bowel movement was today with positive flatus. Patient denies fevers chills nausea vomiting or chest pain. Objective Vitals Vital Signs Date Time Temp Pulse Resp B/P Pulse Ox O2 Delivery O2 Flow Rate FiO2 09/16/16 05:46 98.0 56 17 112/63 98 09/15/16 18:00 98.3 72 18 153/67 95 I/O 09/15/16 09/15/16 09/15/16 09/16/16 09/16/16 09/16/16 07:00 15:00 23:00 07:00 15:00 23:00 Intake Total 360 ml 480 ml 1080 ml 0 ml Balance 360 ml 480 ml 1080 ml 0 ml Intake Oral 360 ml 480 ml 1080 ml 0 ml # Voids 2 3 2 # Bowel Movements 1 Result Diagram: 09/14/16171109/14/161711 Objective Remarks well-nourished, looks stated age pink conjunctiva without injection, anicteric Nose without bleeding, airway patent, oropharynx clear Supple neck, no masses or thyromegaly, trachea midline Normal rate and regular rhythm, no murmurs gallops or rubs appreciated. Decreased breath sounds, no wheezes rhonchi or rales Normal bowel sounds, distended soft, tender to deep bilaterally, enlarged liver palpable, no guarding, positive fluid wave Extremities without clubbing, cyanosis, trace edema. No rash of generalized distribution. Skin is warm and dry. AAO to self and place, no deficits. A/P Assessment and Plan This is a 66-year-old male with history of COPD, diabetes mellitus admitted to psych unit for suicidal ideations Suicidal ideations, depression-further management per psychiatry COPD-does not sound to be in exacerbation on examination. Denies shortness of breath, Taper prednisone - will decrease to 20 mg daily, chest x-ray personally reviewed by myself as well as Dr. Dobbins no acute disease process identified, Continue DuoNeb's scheduled and as needed. BNP 9, patient has history of CHF, continue Lasix. Continue Tessalon. Chronic pain-restart tramadol and Lortab Diabetes mellitus- check hemoglobin A1c, sliding scale insulin for now Levemir per home dose Abdominal pain with distention ? Ascites CMP, LFTs, CBC US Abdomen Hypertension-restart Norvasc, lisinopril, Lopressor Discussed with patient RN and Dr. Valenzuela Written by Jenny Stanley, acting as scribe for Dr. Dobbins on 09/16/16 at 13:32. The documentation accurately reflects the work performed [id number] by me on at 13:32 Jenny Stanley Sep 16, 2016 13:34 Cleve Dobbins MD Sep 16, 2016 14:26
[2016-09-16 16:31] LABS: BASOPHIL % 0.6 % (0.0-2.0); EOSINOPHIL % 0.1 % (0.0-4.0); HEMATOCRIT 42.5 % (39.0-51.0); HEMO FLAGS DIFF FINAL; LYMPH % 28.9 % (9.0-44.0); LYMPHOCYTE # 2.2 TH/MM3 (1.0-4.8); MEAN CELL VOLUME 94.7 FL (80.0-100.0); MEAN CORPUSCULAR HEMOGLOBIN 30.8 PG (27.0-34.0); MEAN CORPUSCULAR HGB CONC 32.5 % (32.0-36.0); MONO % 5.4 % (0.0-8.0); PLATELET COUNT 253 TH/MM3 (150-450); RED BLOOD COUNT 4.49 MIL/MM3 (4.50-5.90); RED CELL DISTRIBUTION WIDTH 15.4 % (11.6-17.2); WHITE BLOOD COUNT 7.7 TH/MM3 (4.0-11.0)
[2016-09-16 16:50] LABS: ALT (GPT) 49 U/L (12-78); ANION GAP 8 MEQ/L (5-15); AST (GOT) 29 U/L (15-37); BICARBONATE 28.8 MEQ/L (21.0-32.0); BLOOD UREA NITROGEN 16 MG/DL (7-18); CHLORIDE 104 MEQ/L (98-107); GLOMERULAR FILTRATION RATE 56 ML/MIN (>89); POTASSIUM 4.1 MEQ/L (3.5-5.1); SODIUM (NA) 141 MEQ/L (136-145)
[2016-09-16 16:52] LABS: ALKALINE PHOSPHATASE 95 U/L (45-117); TOTAL BILIRUBIN ADULT 0.2 MG/DL (0.2-1.0)
[2016-09-16 18:00] VITALS: BP 136/74; PULSE 64; RESP 17; TEMP 98.5; O2SAT 98
[2016-09-16] MEDS: INSULIN DETEMIR 100 UNITS/ML VIAL SQ SCH (20:40)
[2016-09-16] MEDS: QUEtiapine FUMARATE 200 MG TAB PO SCH (20:40)
[2016-09-16] MEDS: traZODone HCL 50 MG TAB PO PRN (20:53)
[2016-09-16] MEDS: LATANOPROST 0.005% OPHT SOLN 2.5 ML BTL EACH EYE SCH (20:53)
--- NOTE | 2016-09-16 22:22 | RADRPT ---
EXAM DATE/TIME: 09/16/2016 19:43 [facility] COMPARISON: CT ABDOMEN & PELVIS W/O CONTRAST, March 23, 2013, 22:31. [facility] INDICATIONS : Abdominal pain. MEDICAL HISTORY : Hypercholesterolemia. Congestive heart failure. Gastroesophageal reflux disease. Cerebrovascular acci dent. Chronic obstructive pulmonary disease. Hypertension. Myocardial infarction. Cardiomyopathy. Irr egular heartbeat. Deep vein thrombosis. Asthma. Inflammatory bowel disease. Renal disease. Kidney sto osmel. Arthritis. Diatbetes. Liver disease. Bipolar disorder. SURGICAL HISTORY : Right leg foreign body removal. ENCOUNTER: Subsequent ACUITY: 1 day PAIN SCORE: 1/10 LOCATION: Abdomen. MEASUREMENTS: LIVER: 18.6 cm length COMMON DUCT: 5 mm RIGHT KIDNEY: 11.5 x 4.4 x 4.0 cm LEFT KIDNEY: 12.3 x 5.3 x 5.6 cm SPLEEN: 9.0 cm length AORTA: 2.3cm maximal FINDINGS: LIVER: Liver is enlarged with diffusely increased echogenicity suggesting fatty infiltration. No definite ma ss or biliary ductal location. COMMON DUCT: No intraluminal mass or stone visualized. GALLBLADDER: Tiny probable polyp in the gallbladder neck region. Minimal sludge. No mobile stones, wall thickening or pericholecystic fluid. PANCREAS: The visualized portions are within normal limits. RIGHT KIDNEY: No hydronephrosis, stone or mass. LEFT KIDNEY: No hydronephrosis, stone or mass. SPLEEN: No focal lesion. AORTA: Non aneurysmal. IVC: Within normal limits. CONCLUSION: Hepatomegaly and steatosis. Tiny gallbladder polyp. Javid Siddiqi MD on September 16, 2016 at 22:17 Board Certified Radiologist. This report was verified electronically.
[2016-09-17 05:36] VITALS: BP 91/52; PULSE 70; RESP 16; TEMP 97.7; O2SAT 94
[2016-09-17] MEDS: LOW DOSE INSULIN NOVOLOG SUPPLEMENTAL SCALE SQ SCH ×3 (08:00→17:00)
[2016-09-17] MEDS: LISINOPRIL 20 MG TAB PO SCH (09:00)
[2016-09-17] MEDS: SPIRONOLACTONE 25 MG TAB PO SCH (09:00)
[2016-09-17] MEDS: METOPROLOL TARTRATE 50 MG TAB PO SCH ×2 (09:00→20:11)
[2016-09-17] MEDS: ARTIFICIAL TEARS OPTH SOLN 15 ML BTL EACH EYE SCH ×2 (09:00→20:08)
[2016-09-17] MEDS: RESP: ALBUTEROL 2.5 MG/IPRATROPIUM 0.5 MG NEB (SCH) NEB ×3 (09:12→23:27)
[2016-09-17] MEDS: NITROFURANTOIN MONOHYD MACROCR 100 MG CAP PO SCH ×2 (09:18→17:23)
[2016-09-17] MEDS: PANTOPRAZOLE SOD 40 MG DELAYED RELEASE TAB PO SCH ×2 (09:19→20:08)
[2016-09-17] MEDS: CETIRIZINE HCL 10 MG TAB PO SCH (09:19)
[2016-09-17] MEDS: DOCUSATE SODIUM 100 MG CAP PO SCH ×2 (09:19→20:08)
[2016-09-17] MEDS: FAMOTIDINE 20 MG TAB PO SCH ×2 (09:19→20:09)
[2016-09-17] MEDS: BETHANECHOL CHL 10 MG TAB PO SCH ×3 (09:19→17:23)
[2016-09-17] MEDS: ESCITALOPRAM OXALATE 20 MG TAB PO SCH (09:19)
[2016-09-17] MEDS: VENLAFAXINE HCL XR 75 MG CAP PO SCH (09:19)
[2016-09-17] MEDS: FUROSEMIDE 40 MG TAB PO SCH (09:19)
[2016-09-17] MEDS: predniSONE 20 MG TAB PO SCH (09:22)
--- NOTE | 2016-09-17 14:41 | HHI.PR ---
Subjective Remarks Follow up COPD, DM, HTN. Patient seen at inpatient psychiatric center. Patient reports shortness of breath is about the same. Complaints of continued abdominal pain. Patient describes the pain as a constant cramping. Patient reports his last bowel movement was 09/16/2016. positive flatus. Patient denies fevers chills nausea vomiting chest pain. Reports shortness of breath is at baseline. Objective Vitals Vital Signs Date Time Temp Pulse Resp B/P Pulse Ox O2 Delivery O2 Flow Rate FiO2 09/17/16 05:36 97.7 70 16 91/52 94 09/16/16 18:00 98.5 64 17 136/74 98 I/O 09/16/16 09/16/16 09/16/16 09/17/16 09/17/16 09/17/16 07:00 15:00 23:00 07:00 15:00 23:00 Intake Total 0 ml 1800 ml 480 ml 360 ml 1800 ml Balance 0 ml 1800 ml 480 ml 360 ml 1800 ml Intake Oral 0 ml 1800 ml 480 ml 360 ml 1800 ml # Voids 2 2 3 1 Result Diagram: 09/16/16 1537 09/16/16 1537 Objective Remarks well-nourished, looks stated age pink conjunctiva without injection, anicteric Nose without bleeding, airway patent, oropharynx clear Supple neck, no masses or thyromegaly, trachea midline Normal rate and regular rhythm, no murmurs gallops or rubs appreciated. Decreased breath sounds, no wheezes rhonchi or rales Normal bowel sounds, distended soft, tender to deep bilaterally, enlarged liver palpable, no guarding Extremities without clubbing, cyanosis, trace edema. No rash of generalized distribution. Skin is warm and dry. AAO to self and place, no deficits. A/P Assessment and Plan This is a 66-year-old male with history of COPD, diabetes mellitus admitted to psych unit for suicidal ideations Suicidal ideations, depression-further management per psychiatry COPD-does not sound to be in exacerbation on examination. Denies shortness of breath, Taper prednisone chest x-ray personally reviewed by myself as well as Dr. Dobbins no acute disease process identified, Continue DuoNeb's scheduled and as needed. BNP 9, patient has history of CHF, continue Lasix. Continue Tessalon. Chronic pain- continue tramadol and Lortab Diabetes mellitus- check hemoglobin A1c, sliding scale insulin and Levemir 18 Units QHS per home dose Abdominal pain with distention ? Ascites CMP reviewed creatinine 1.53 GFR 56 will continue to monitor, LFTs reviewed within normal limits, CBC reviewed within normal limits US Abdomen- reveals hepatomegaly with steatosis tiny colon polyp. Discussed exam with radiology report no evidence of ascites. Hypertension- hypotensive episode this a.m. /52 will continue to monitor and add hold parameters to blood pressure medication Continue Norvasc, Lopressor- with hold parameters Decrease lisinopril to 20 mg daily- with hold parameters Discussed with patient RN and Dr. Valenzuela Written by Jenny Stanley, acting as scribe for Dr. Dobbins on 09/17/16 at 13:32. The documentation accurately reflects the work performed [id number] by me on at 13:32. Jenny Stanley Sep 17, 2016 14:41 Cleve Dobbins MD Sep 18, 2016 16:46
--- NOTE | 2016-09-17 14:44 | HHI.PYPN ---
Subjective Remarks Patient discussed with treatment team, chart review, patient seen on unit. Patient somewhat calm with me remains somatic ultrasound of abdomen showed some involvement of the liver though no obstruction mass or dilatation noted. Patient is to remain somatic at this time, did denies suicidality but is somewhat vague and obtuse about auditory happened if he were discharged. Compliant medications. Review of Systems Except as stated in HPI: all other systems reviewed are Neg Objective Alert: Yes [place]: Person Mood: Calm, Depressed Affect: Restricted Memory Intact: Comment (very poor) Hallucinations: Other Delusions: No Delusion Type: Other (loudly vigilant) Suicidal: Intent (vague) Homicidal: Ideation Insight/Judgement Very poor Labs Test 09/16/16 15:37 White Blood Count 7.7 TH/MM3 Red Blood Count 4.49 MIL/MM3 Hemoglobin 13.8 GM/DL Hematocrit 42.5 % Mean Corpuscular Volume 94.7 FL Mean Corpuscular Hemoglobin 30.8 PG Mean Corpuscular Hemoglobin 32.5 % Concent Red Cell Distribution Width 15.4 % Platelet Count 253 TH/MM3 Mean Platelet Volume 7.9 FL Neutrophils (%) (Auto) 65.0 % Lymphocytes (%) (Auto) 28.9 % Monocytes (%) (Auto) 5.4 % Eosinophils (%) (Auto) 0.1 % Basophils (%) (Auto) 0.6 % Neutrophils # (Auto) 5.0 TH/MM3 Lymphocytes # (Auto) 2.2 TH/MM3 Monocytes # (Auto) 0.4 TH/MM3 Eosinophils # (Auto) 0.0 TH/MM3 Basophils # (Auto) 0.0 TH/MM3 CBC Comment DIFF FINAL Differential Comment Sodium Level 141 MEQ/L Potassium Level 4.1 MEQ/L Chloride Level 104 MEQ/L Carbon Dioxide Level 28.8 MEQ/L Anion Gap 8 MEQ/L Blood Urea Nitrogen 16 MG/DL Creatinine 1.53 MG/DL Estimat Glomerular Filtration 56 ML/MIN Rate Random Glucose 112 MG/DL Calcium Level 8.1 MG/DL Total Bilirubin 0.2 MG/DL Aspartate Amino Transf 29 U/L (AST/SGOT) Alanine Aminotransferase 49 U/L (ALT/SGPT) Alkaline Phosphatase 95 U/L Total Protein 7.9 GM/DL Albumin 3.7 GM/DL Vitals/IOs Vital Signs Date Time Temp Pulse Resp B/P Pulse Ox O2 Delivery O2 Flow Rate FiO2 09/17/16 05:36 97.7 70 16 91/52 94 Intake and Output 09/16/16 09/16/16 09/17/16 08:00 16:00 00:00 Intake Total 0 ml 1800 ml 480 ml Balance 0 ml 1800 ml 480 ml Assessment & Plan Problem List: (1) Major depressive disorder, recurrent, severe with psychotic features ICD Code: F33.3 (2) Dementia w behavior dist ICD Code: F03.91 Assessment & Plan Estimated LOS: days patient continues depressed, while denying suicidality continues with vague statements related to that. Compliant medications. Continue somatic Justification for Cont. Inpt. At this time patient would significantly decompensate if placed in the lower level of care Discharge Planning To be determined Request HC Surrog/Guard Advoc?: No Javid Bran MD Sep 17, 2016 14:44
[2016-09-17] MEDS ORDERED: DIATRIZOATE MEGLUM/DIATRIZOATE SOD 9 ML CUP PO ONE ×2 (15:45→20:00)
[2016-09-17 18:25] VITALS: BP 105/61; PULSE 74; RESP 16; TEMP 98.1; O2SAT 98
[2016-09-17 18:53] LABS: BLOOD, URINE NEG (NEG); COMMENT (UR) CULT NOT INDICATED; CULTURE IF INDICATED CULT NOT INDICATED; GLUCOSE,URINE NEG (NEG); HYALINE CAST, URINE 3 /lpf (RARE); KETONE, URINE NEG (NEG); MUCUS URINE FEW /lpf (OCC); NITRITE,URINE NEG (NEG); PH, URINE 5.5 (5.0-8.5); SQUAMOUS EPITHELIAL CELL URINE <1 /hpf (0-5); URINE COLOR YELLOW (YELLW/STRAW)
[2016-09-17] MEDS: QUEtiapine FUMARATE 200 MG TAB PO SCH (20:08)
[2016-09-17] MEDS: INSULIN DETEMIR 100 UNITS/ML VIAL SQ SCH (20:12)
--- NOTE | 2016-09-17 21:40 | RADRPT ---
EXAM DATE/TIME: 09/17/2016 21:10 [facility] COMPARISON: CT ABDOMEN & PELVIS W/O CONTRAST, March 23, 2013, 22:31. INDICATIONS : Abdomen pain and constipation. ORAL CONTRAST: Prescribed oral contrast ingested. RADIATION DOSE: 17.71 CTDIvol (mGy) MEDICAL HISTORY : Renal failure, chronic. Deep venous thrombosis. Chronic obstructive pulmonary disease.Liver disease, diabetes. SURGICAL HISTORY : None. ENCOUNTER: Initial ACUITY: 1 day PAIN SCALE: 5/10 LOCATION: Bilateral lower quadrant abdomen. TECHNIQUE: Volumetric scanning of the abdomen and pelvis was performed. Using automated exposure control and ad justment of the mA and/or kV according to patient size, radiation dose was kept as low as reasonably achievable to obtain optimal diagnostic quality images. FINDINGS: LOWER LUNGS: The visualized lower lungs are clear. LIVER: Less fatty than before. Subcentimeter low-attenuation structure seen right hepatic lobe, more conspic uous than previous but probably because of the decreased fatty infiltration. It is probably a cyst. SPLEEN: Normal size without lesion. PANCREAS: Within normal limits. KIDNEYS: Normal in size and shape. There is no mass, stone, or hydronephrosis. ADRENAL GLANDS: Within normal limits. VASCULAR: There is no aortic aneurysm. BOWEL/MESENTERY: The stomach, small bowel, and colon demonstrate no acute abnormality. There is no free intraperitone al air or fluid. ABDOMINAL WALL: A small fat-containing umbilical hernia unchanged RETROPERITONEUM: There is no lymphadenopathy. BLADDER: No wall thickening or mass. REPRODUCTIVE: Prostate calcification again noted. INGUINAL: There is no lymphadenopathy or hernia. MUSCULOSKELETAL: No acute bony abnormality demonstrated. CONCLUSION: 1. No acute abnormality demonstrated. 2. Previously seen fatty infiltration of the liver appears essentially resolved. Subcentimeter hypode nsity right hepatic lobe probably a cyst. 3. Fat containing umbilical hernia, not significantly changed. 4. Incidentally seen bilateral gynecomastia. Javid Duncan MD on September 17, 2016 at 21:34 Board Certified Radiologist. This report was verified electronically.
[2016-09-17] MEDS: LATANOPROST 0.005% OPHT SOLN 2.5 ML BTL EACH EYE SCH (23:09)
[2016-09-17] MEDS: ACETAMINOPHEN/HYDROcodone 325 MG/5 MG TAB PO PRN (23:25)
[2016-09-18 06:34] VITALS: BP 147/77; PULSE 65; RESP 16; TEMP 97.4; O2SAT 99
[2016-09-18] MEDS: FAMOTIDINE 20 MG TAB PO SCH ×2 (09:00→20:51)
[2016-09-18] MEDS: LISINOPRIL 20 MG TAB PO SCH (09:00)
[2016-09-18] MEDS: ARTIFICIAL TEARS OPTH SOLN 15 ML BTL EACH EYE SCH ×2 (09:00→20:50)
[2016-09-18] MEDS: NITROFURANTOIN MONOHYD MACROCR 100 MG CAP PO SCH ×2 (09:21→18:00)
[2016-09-18] MEDS: PANTOPRAZOLE SOD 40 MG DELAYED RELEASE TAB PO SCH ×2 (09:21→20:51)
[2016-09-18] MEDS: ESCITALOPRAM OXALATE 20 MG TAB PO SCH (09:21)
[2016-09-18] MEDS: BETHANECHOL CHL 10 MG TAB PO SCH ×3 (09:21→18:00)
[2016-09-18] MEDS: DOCUSATE SODIUM 100 MG CAP PO SCH ×2 (09:21→20:51)
[2016-09-18] MEDS: predniSONE 20 MG TAB PO SCH (09:21)
[2016-09-18] MEDS: VENLAFAXINE HCL XR 75 MG CAP PO SCH (09:21)
[2016-09-18] MEDS: FUROSEMIDE 40 MG TAB PO SCH (09:21)
[2016-09-18] MEDS: CETIRIZINE HCL 10 MG TAB PO SCH (09:21)
[2016-09-18] MEDS: METOPROLOL TARTRATE 50 MG TAB PO SCH ×2 (09:21→20:50)
[2016-09-18] MEDS: SPIRONOLACTONE 25 MG TAB PO SCH (09:21)
[2016-09-18] MEDS: RESP: ALBUTEROL 2.5 MG/IPRATROPIUM 0.5 MG NEB (SCH) NEB ×2 (09:24→16:52)
[2016-09-18] MEDS: LOW DOSE INSULIN NOVOLOG SUPPLEMENTAL SCALE SQ SCH ×2 (11:00→16:00)
--- NOTE | 2016-09-18 16:03 | HHI.PYPN ---
Subjective Remarks Patient seen in day room with nurse Thang and medical student Lucy, patient calm pleasant with me now denies suicidality homicidality voices or visions. Though his eye contact is poor. Compliant medications. For now continue treatment Review of Systems Except as stated in HPI: all other systems reviewed are Neg Objective Alert: Yes [place]: Person Mood: Calm, Depressed Affect: Restricted Memory Intact: Comment (very poor) Hallucinations: Other Delusions: No Delusion Type: Other (loudly vigilant) Suicidal: Intent (vague) Homicidal: Ideation Insight/Judgement Very poor Labs Test 09/17/16 17:30 Urine Color YELLOW Urine Turbidity CLEAR Urine pH 5.5 Urine Specific [place] 1.016 Urine Protein NEG mg/dL Urine Glucose (UA) NEG mg/dL Urine Ketones NEG mg/dL Urine Occult Blood NEG Urine Nitrite NEG Urine Bilirubin NEG Urine Urobilinogen LESS THAN 2.0 MG/DL Urine Leukocyte Esterase TRACE Urine WBC 1 /hpf Urine Squamous Epithelial <1 /hpf Cells Urine Hyaline Casts 3 /lpf Urine Mucus FEW /lpf Microscopic Urinalysis Comment CULT NOT INDICATED Vitals/IOs Vital Signs Date Time Temp Pulse Resp B/P Pulse Ox O2 Delivery O2 Flow Rate FiO2 09/18/16 06:34 97.4 65 16 147/77 99 Intake and Output 09/17/16 09/17/16 09/18/16 08:00 16:00 00:00 Intake Total 360 ml 1800 ml 960 ml Balance 360 ml 1800 ml 960 ml Assessment & Plan Problem List: (1) Major depressive disorder, recurrent, severe with psychotic features ICD Code: F33.3 (2) Dementia w behavior dist ICD Code: F03.91 Assessment & Plan Estimated LOS: days patient continue somewhat depressed though no behavioral problems, compliant medication Justification for Cont. Inpt. At the present time patient would decompensate if placed in a lower level of care Discharge Planning To be determined Request HC Surrog/Guard Advoc?: No Javid Bran MD Sep 18, 2016 16:03
--- NOTE | 2016-09-18 18:05 | HHI.PR ---
Subjective Remarks Follow-up visit COPD, DM, HTN, abdominal pain. Patient seen today lying in bed. States his doing well. Abdominal pain has been improving. Had a bowel movement today. Denies any shortness of breath/dyspnea. Patient has been on room air. Denies fevers, chills, chest pain, palpitations, dizziness, headaches , nausea, vomiting, diarrhea. Objective Vitals Vital Signs Date Time Temp Pulse Resp B/P Pulse Ox O2 Delivery O2 Flow Rate FiO2 09/18/16 06:34 97.4 65 16 147/77 99 09/17/16 18:25 98.1 74 16 105/61 98 I/O 09/17/16 09/17/16 09/17/16 09/18/16 09/18/16 09/18/16 07:00 15:00 23:00 07:00 15:00 23:00 Intake Total 360 ml 1800 ml 960 ml 720 ml 1080 ml Balance 360 ml 1800 ml 960 ml 720 ml 1080 ml Intake Oral 360 ml 1800 ml 960 ml 720 ml 1080 ml # Voids 3 1 1 2 1 # Bowel Movements 1 Result Diagram: 09/16/16 1537 09/16/16 1537 Imaging Last Impressions Abdomen/Pelvis CT 09/17/16 0000 Signed Impressions: Service Date/Time: Saturday, September 17, 2016 21:10 - CONCLUSION: 1. No acute abnormality demonstrated. 2. Previously seen fatty infiltration of the liver appears essentially resolved. Subcentimeter hypodensity right hepatic lobe probably a cyst. 3. Fat containing umbilical hernia, not significantly changed. 4. Incidentally seen bilateral gynecomastia. Javid Duncan MD Abdomen Ultrasound 09/16/16 0000 Signed Impressions: Service Date/Time: Friday, September 16, 2016 19:43 - CONCLUSION: Hepatomegaly and steatosis. Tiny gallbladder polyp. Javid Siddiqi MD Chest X-Ray 09/14/16 0000 Signed Impressions: Service Date/Time: Wednesday, September 14, 2016 15:15 - CONCLUSION: ` No acute cardiopulmonary disease. Sadi Olivas MD Objective Remarks GENERAL: This is obese, well-developed patient, in no apparent distress. HEENT: Normocephalic. Pupils equal round and reactive. Nose without bleeding. Airway patent. NECK: Trachea midline. No JVD. Supple. CARDIOVASCULAR: Regular rate and rhythm without murmurs, gallops, or rubs. RESPIRATORY: Clear to auscultation lateral upper lobes. Breath sounds diminished at the bases. No wheezes, rales, or rhonchi. GASTROINTESTINAL: Abdomen soft, non-tender, nondistended. Bowel Sounds normoactive x4. MUSCULOSKELETAL: Extremities without clubbing, cyanosis, or edema. NEUROLOGICAL: Awake and alert. Oriented x 3. No focal neuro deficit. [place]. Normal speech. A/P Problem List: (1) Major depressive disorder, recurrent, severe with psychotic features ICD Code: F33.3 Status: Acute (2) Obesity (BMI 30-39.9) ICD Code: E66.9 Status: Acute (3) Hypertension ICD Code: I10 Status: Acute (4) Abdominal pain ICD Code: R10.9 Status: Acute (5) DM type 2 (diabetes mellitus, type 2) ICD Code: E11.9 Status: Acute Assessment and Plan This is a 66-year-old male with history of COPD, diabetes mellitus admitted to psych unit for suicidal ideations Suicidal ideations, depression-further management per psychiatry COPD-does not sound to be in exacerbation on examination. Denies shortness of breath. On room air. No accessory muscle use. No wheezing, rhonchi, or rales noted on exam. chest x-ray reviewed no acute disease process identified, Continue DuoNeb's scheduled and as needed. Continue Tessalon. Taper prednisone. on prednisone 20 mg daily. We'll decrease prednisone dose to 10 mg daily x 5 days. Start Symbicort Chronic pain- continue tramadol and Lortab Diabetes mellitus- Hemoglobin A1c 6.1, sliding scale insulin and Levemir 18 Units QHS per home dose Abdominal pain with distention ? Ascites CMP reviewed creatinine 1.53 GFR 56 will continue to monitor, LFTs reviewed within normal limits, CBC reviewed within normal limits US Abdomen- reveals hepatomegaly with steatosis tiny colon polyp. Discussed exam with radiology report no evidence of ascites. CT of the abdomen - no acute abnormality demonstrated. Previously seen fatty infiltration of the liver appears essentially resolved. Subcentimeter hypodensity right hepatic lobe probably a cyst. Fat-containing umbilical hernia , not significantly changed. Incidentally seen bilateral gynecomastia. Results discussed with patient Hypertension- hypotensive episode this a.m. will continue to monitor and add hold parameters to blood pressure medication Continue Norvasc, Lopressor- with hold parameters Decrease lisinopril to 20 mg daily- with hold parameters CHF - on Lasix 40mg and Aldactone 25mg -BNP 9 CKD, acute on chronic -Avoid nephrotoxins. -Monitor BMP. 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 End date 09/23/15 -Denies any symptoms on exam Discuss with patient, nursing, and Dr. Dobbins. Jose G Wyatt Sep 18, 2016 18:05
[2016-09-18 19:22] VITALS: BP 127/59; PULSE 80; RESP 16; TEMP 98.6; O2SAT 97
[2016-09-18] MEDS: INSULIN DETEMIR 100 UNITS/ML VIAL SQ SCH (20:50)
[2016-09-18] MEDS: LATANOPROST 0.005% OPHT SOLN 2.5 ML BTL EACH EYE SCH (20:50)
[2016-09-18] MEDS: QUEtiapine FUMARATE 200 MG TAB PO SCH (20:51)
[2016-09-18] MEDS: BUDESONIDE-FORMOTEROL 160/4.5 MCG INHALER INH SCH (21:00)
[2016-09-19] MEDS: RESP: ALBUTEROL 2.5 MG/IPRATROPIUM 0.5 MG NEB (SCH) NEB ×4 (00:32→23:24)
[2016-09-19 05:59] VITALS: BP 119/65; PULSE 62; RESP 18; TEMP 97.6
[2016-09-19] MEDS: LOW DOSE INSULIN NOVOLOG SUPPLEMENTAL SCALE SQ SCH ×3 (06:09→16:00)
[2016-09-19] MEDS: LISINOPRIL 20 MG TAB PO SCH (08:47)
[2016-09-19] MEDS: BETHANECHOL CHL 10 MG TAB PO SCH ×3 (08:47→17:31)
[2016-09-19] MEDS: PANTOPRAZOLE SOD 40 MG DELAYED RELEASE TAB PO SCH ×2 (08:47→21:26)
[2016-09-19] MEDS: SPIRONOLACTONE 25 MG TAB PO SCH (08:47)
[2016-09-19] MEDS: ARTIFICIAL TEARS OPTH SOLN 15 ML BTL EACH EYE SCH ×2 (08:48→21:25)
[2016-09-19] MEDS: ESCITALOPRAM OXALATE 20 MG TAB PO SCH (08:48)
[2016-09-19] MEDS: NITROFURANTOIN MONOHYD MACROCR 100 MG CAP PO SCH ×2 (08:48→17:31)
[2016-09-19] MEDS: FAMOTIDINE 20 MG TAB PO SCH ×2 (08:48→21:26)
[2016-09-19] MEDS: METOPROLOL TARTRATE 50 MG TAB PO SCH ×2 (08:48→21:26)
[2016-09-19] MEDS: CETIRIZINE HCL 10 MG TAB PO SCH (08:48)
[2016-09-19] MEDS: predniSONE 10 MG TAB PO SCH (08:48)
[2016-09-19] MEDS: VENLAFAXINE HCL XR 75 MG CAP PO SCH (08:49)
[2016-09-19] MEDS: BUDESONIDE-FORMOTEROL 160/4.5 MCG INHALER INH SCH ×2 (08:53→21:24)
[2016-09-19] MEDS: FUROSEMIDE 40 MG TAB PO SCH (08:55)
[2016-09-19] MEDS: DOCUSATE SODIUM 100 MG CAP PO SCH ×2 (09:00→21:26)
[2016-09-19] MEDS ORDERED: PILL SPLITTER OTHER PRN (09:15)
--- NOTE | 2016-09-19 10:55 | HHI.PYPN ---
Subjective Remarks Patient seen in room with nurse Ashlie, chart review, patient calm cooperative no significant behavioral problems, compliant medications, has requested double portions of his hamburger and prydeinig fries. Though he is on 1800-calorie diabetic diet. Also thus time I feel patient is improved to the 0.3 has the capacity to sign voluntary thus I'll lift the Garcia act allow patient to sign voluntary. For Now continue medication no change Review of Systems Except as stated in HPI: all other systems reviewed are Neg Objective Alert: Yes [place]: Person Mood: Calm, Depressed Affect: Restricted Memory Intact: Comment (very poor) Hallucinations: Other Delusions: No Delusion Type: Other (loudly vigilant) Suicidal: Intent (vague) Homicidal: Ideation Insight/Judgement Poor Vitals/IOs Vital Signs Date Time Temp Pulse Resp B/P Pulse Ox O2 Delivery O2 Flow Rate FiO2 09/19/16 05:59 97.6 62 18 119/65 09/18/16 19:22 97 Intake and Output 09/18/16 09/18/16 09/19/16 08:00 16:00 00:00 Intake Total 1440 ml 840 ml Balance 1440 ml 840 ml Assessment & Plan Problem List: (1) Major depressive disorder, recurrent, severe with psychotic features ICD Code: F33.3 (2) Dementia w behavior dist ICD Code: F03.91 Assessment & Plan Estimated LOS: days patient calmer cooperative no behavior problems, denies suicidality, at this time patient has capacity to sign voluntary will lift Garcia act allow patient to sign voluntary Justification for Cont. Inpt. At this time patient will decompensate if placed in the lower level of care Discharge Planning To be determined Request HC Surrog/Guard Advoc?: Javid Duckworth MD Sep 19, 2016 10:55
[2016-09-19 18:55] VITALS: BP 115/66; PULSE 73; RESP 16; TEMP 97.9; O2SAT 98
[2016-09-19] MEDS: INSULIN DETEMIR 100 UNITS/ML VIAL SQ SCH (21:25)
[2016-09-19] MEDS: LATANOPROST 0.005% OPHT SOLN 2.5 ML BTL EACH EYE SCH (21:25)
[2016-09-19] MEDS: QUEtiapine FUMARATE 200 MG TAB PO SCH (21:25)
[2016-09-20 06:24] VITALS: BP 121/69; PULSE 74; RESP 20; TEMP 97; O2SAT 97
[2016-09-20] MEDS: LOW DOSE INSULIN NOVOLOG SUPPLEMENTAL SCALE SQ SCH ×3 (07:00→16:00)
[2016-09-20] MEDS: RESP: ALBUTEROL 2.5 MG/IPRATROPIUM 0.5 MG NEB (SCH) NEB ×3 (08:50→23:30)
--- NOTE | 2016-09-20 08:55 | HHI.PYPN ---
Subjective Remarks Patient seen in dayroom nurse Sarah, chart review, patient compliant medications, now denies suicidality homicidality voices or visions. Patient no behavioral problems. Continue to work on placement issues Review of Systems Except as stated in HPI: all other systems reviewed are Neg Objective Alert: Yes [place]: Person Mood: Calm, Depressed Affect: Restricted Memory Intact: Comment (very poor) Hallucinations: Other Delusions: No Delusion Type: Other (loudly vigilant) Suicidal: Intent (vague) Homicidal: Ideation Insight/Judgement Poor Vitals/IOs Vital Signs Date Time Temp Pulse Resp B/P Pulse Ox O2 Delivery O2 Flow Rate FiO2 09/20/16 06:24 97.0 74 20 121/69 97 Intake and Output 09/19/16 09/19/16 09/20/16 08:00 16:00 00:00 Intake Total 362 ml 840 ml 1680 ml Balance 362 ml 840 ml 1680 ml Assessment & Plan Problem List: (1) Major depressive disorder, recurrent, severe with psychotic features ICD Code: F33.3 (2) Dementia w behavior dist ICD Code: F03.91 Assessment & Plan Estimated LOS: days patient's mood improving, compliant medications, still remains somewhat confused. For now continue treatment no change counselors continuing to work with placement issues Justification for Cont. Inpt. At this time patient will decompensate if placed in a lower level of care Discharge Planning To be determined Request HC Surrog/Guard Advoc?: No Javid Bran MD Sep 20, 2016 08:55
[2016-09-20] MEDS: ESCITALOPRAM OXALATE 20 MG TAB PO SCH (09:06)
[2016-09-20] MEDS: LISINOPRIL 20 MG TAB PO SCH (09:06)
[2016-09-20] MEDS: VENLAFAXINE HCL XR 75 MG CAP PO SCH (09:06)
[2016-09-20] MEDS: BUDESONIDE-FORMOTEROL 160/4.5 MCG INHALER INH SCH ×2 (09:06→20:16)
[2016-09-20] MEDS: predniSONE 10 MG TAB PO SCH (09:06)
[2016-09-20] MEDS: PANTOPRAZOLE SOD 40 MG DELAYED RELEASE TAB PO SCH ×2 (09:06→20:15)
[2016-09-20] MEDS: DOCUSATE SODIUM 100 MG CAP PO SCH ×2 (09:06→20:15)
[2016-09-20] MEDS: BETHANECHOL CHL 10 MG TAB PO SCH ×3 (09:07→17:13)
[2016-09-20] MEDS: SPIRONOLACTONE 25 MG TAB PO SCH (09:07)
[2016-09-20] MEDS: FUROSEMIDE 40 MG TAB PO SCH (09:07)
[2016-09-20] MEDS: FAMOTIDINE 20 MG TAB PO SCH ×2 (09:07→20:17)
[2016-09-20] MEDS: ARTIFICIAL TEARS OPTH SOLN 15 ML BTL EACH EYE SCH ×2 (09:07→20:17)
[2016-09-20] MEDS: NITROFURANTOIN MONOHYD MACROCR 100 MG CAP PO SCH ×2 (09:07→17:13)
[2016-09-20] MEDS: CETIRIZINE HCL 10 MG TAB PO SCH (09:07)
[2016-09-20] MEDS: METOPROLOL TARTRATE 50 MG TAB PO SCH ×2 (09:07→20:15)
[2016-09-20] MEDS: METOCLOPRAMIDE HCL 10 MG TAB PO PRN (14:05)
--- NOTE | 2016-09-20 16:13 | HHI.PR ---
Subjective Remarks Follow-up visit COPD, DM, HTN, abdominal pain. Patient seen today. States his doing well. Denies any shortness of breath/dyspnea. Patient has been on room air. Denies fevers, chills, chest pain, palpitations, dizziness, headaches, nausea, vomiting, diarrhea. Denies abdominal pain, cramping. Has been eating and drinking well. Objective Vitals Vital Signs Date Time Temp Pulse Resp B/P Pulse Ox O2 Delivery O2 Flow Rate FiO2 09/20/16 06:24 97.0 74 20 121/69 97 09/19/16 18:55 97.9 73 16 115/66 98 I/O 09/19/16 09/19/16 09/19/16 09/20/16 09/20/16 09/20/16 06:59 14:59 22:59 06:59 14:59 22:59 Intake Total 2 ml 1200 ml 1680 ml Balance 2 ml 1200 ml 1680 ml Intake Oral 2 ml 1200 ml 1680 ml # Voids 5 1 Result Diagram: 09/16/16 1537 09/16/16 1537 Imaging Last Impressions Abdomen/Pelvis CT 09/17/16 0000 Signed Impressions: Service Date/Time: Saturday, September 17, 2016 21:10 - CONCLUSION: 1. No acute abnormality demonstrated. 2. Previously seen fatty infiltration of the liver appears essentially resolved. Subcentimeter hypodensity right hepatic lobe probably a cyst. 3. Fat containing umbilical hernia, not significantly changed. 4. Incidentally seen bilateral gynecomastia. Javid Duncan MD Abdomen Ultrasound 09/16/16 0000 Signed Impressions: Service Date/Time: Friday, September 16, 2016 19:43 - CONCLUSION: Hepatomegaly and steatosis. Tiny gallbladder polyp. Javid Siddiqi MD Chest X-Ray 09/14/16 0000 Signed Impressions: Service Date/Time: Wednesday, September 14, 2016 15:15 - CONCLUSION: ` No acute cardiopulmonary disease. Sadi Olivas MD Objective Remarks GENERAL: This is obese, well-developed patient, in no apparent distress. HEENT: Normocephalic. Pupils equal round and reactive. Nose without bleeding. Airway patent. NECK: Trachea midline. No JVD. Supple. CARDIOVASCULAR: Regular rate and rhythm without murmurs, gallops, or rubs. RESPIRATORY: Clear to auscultation lateral upper lobes. Breath sounds diminished at the bases. No wheezes, rales, or rhonchi. GASTROINTESTINAL: Abdomen soft, non-tender, nondistended. Bowel Sounds normoactive x4. MUSCULOSKELETAL: Extremities without clubbing, cyanosis, or edema. NEUROLOGICAL: Awake and alert. Oriented x 3. No focal neuro deficit. [place]. Normal speech. A/P Problem List: (1) Major depressive disorder, recurrent, severe with psychotic features ICD Code: F33.3 Status: Acute (2) Obesity (BMI 30-39.9) ICD Code: E66.9 Status: Acute (3) Hypertension ICD Code: I10 Status: Acute (4) Abdominal pain ICD Code: R10.9 Status: Acute (5) DM type 2 (diabetes mellitus, type 2) ICD Code: E11.9 Status: Acute Assessment and Plan This is a 66-year-old male with history of COPD, diabetes mellitus admitted to psych unit for suicidal ideations Suicidal ideations, depression-further management per psychiatry COPD-does not sound to be in exacerbation on examination. Denies shortness of breath. On room air. No accessory muscle use. No wheezing, rhonchi, or rales noted on exam. chest x-ray reviewed no acute disease process identified, Continue DuoNeb's scheduled and as needed. Continue Tessalon. Taper prednisone. Prednisone dose to 10 mg daily x 5 days. To be completed 09/24/16 Started On Symbicort Denies any shortness of breath. Asymptomatic. Aeration improved no wheezing during exam Chronic pain- continue tramadol and Lortab Diabetes mellitus- Hemoglobin A1c 6.1, sliding scale insulin and Levemir 18 Units QHS per home dose Abdominal pain with distention ? Ascites CMP reviewed creatinine 1.53 GFR 56 will continue to monitor, LFTs reviewed within normal limits, CBC reviewed within normal limits US Abdomen- reveals hepatomegaly with steatosis tiny colon polyp. Discussed exam with radiology report no evidence of ascites. CT of the abdomen - no acute abnormality demonstrated. Previously seen fatty infiltration of the liver appears essentially resolved. Subcentimeter hypodensity right hepatic lobe probably a cyst. Fat-containing umbilical hernia , not significantly changed. Incidentally seen bilateral gynecomastia. Results discussed with patient. Hypertension- hypotensive episode this a.m. will continue to monitor and add hold parameters to blood pressure medication Continue Norvasc, Lopressor- with hold parameters Decrease lisinopril to 20 mg daily- with hold parameters CHF - on Lasix 40mg and Aldactone 25mg -BNP 9 CKD, acute on chronic -Avoid nephrotoxins. -Monitor BMP. 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 End date 09/23/15 -Denies any symptoms on exam Discuss with patient, nursing, and Dr. Dobbins. *Stable from Hospitalist standpoint. We will sign off. Reconsult as needed. Thank you. Jose G Wyatt Sep 20, 2016 16:12
[2016-09-20 18:47] VITALS: BP 119/66; PULSE 74; RESP 17; TEMP 98.6; O2SAT 100
[2016-09-20 19:36] VITALS: BP 119/66; PULSE 74; RESP 17; TEMP 98.6; O2SAT 100
[2016-09-20] MEDS: traZODone HCL 50 MG TAB PO PRN (20:14)
[2016-09-20] MEDS: QUEtiapine FUMARATE 200 MG TAB PO SCH (20:14)
[2016-09-20] MEDS: LATANOPROST 0.005% OPHT SOLN 2.5 ML BTL EACH EYE SCH (20:16)
[2016-09-20] MEDS: INSULIN DETEMIR 100 UNITS/ML VIAL SQ SCH (20:17)
[2016-09-21 06:16] VITALS: BP 98/50; PULSE 57; RESP 16; TEMP 97.8; O2SAT 97
[2016-09-21] MEDS: LOW DOSE INSULIN NOVOLOG SUPPLEMENTAL SCALE SQ SCH ×3 (06:17→15:57)
[2016-09-21] MEDS: FUROSEMIDE 40 MG TAB PO SCH (09:00)
[2016-09-21] MEDS: ESCITALOPRAM OXALATE 20 MG TAB PO SCH (09:00)
[2016-09-21] MEDS: SPIRONOLACTONE 25 MG TAB PO SCH (09:00)
[2016-09-21] MEDS: CETIRIZINE HCL 10 MG TAB PO SCH (09:00)
[2016-09-21] MEDS: predniSONE 10 MG TAB PO SCH (09:00)
[2016-09-21] MEDS: BUDESONIDE-FORMOTEROL 160/4.5 MCG INHALER INH SCH (09:00)
[2016-09-21] MEDS: BETHANECHOL CHL 10 MG TAB PO SCH ×2 (09:00→12:31)
[2016-09-21] MEDS: PANTOPRAZOLE SOD 40 MG DELAYED RELEASE TAB PO SCH (09:00)
[2016-09-21] MEDS: LISINOPRIL 20 MG TAB PO SCH (09:00)
[2016-09-21] MEDS: DOCUSATE SODIUM 100 MG CAP PO SCH (09:00)
[2016-09-21] MEDS: NITROFURANTOIN MONOHYD MACROCR 100 MG CAP PO SCH (09:00)
[2016-09-21] MEDS: VENLAFAXINE HCL XR 75 MG CAP PO SCH (09:00)
[2016-09-21] MEDS: FAMOTIDINE 20 MG TAB PO SCH (09:00)
[2016-09-21] MEDS: METOPROLOL TARTRATE 50 MG TAB PO SCH (09:00)
[2016-09-21] MEDS: ARTIFICIAL TEARS OPTH SOLN 15 ML BTL EACH EYE SCH (09:00)
[2016-09-21] MEDS: RESP: ALBUTEROL 2.5 MG/IPRATROPIUM 0.5 MG NEB (SCH) NEB ×2 (09:45→16:45)
--- NOTE | 2016-09-21 12:03 | HHI.PYPN ---
Subjective Remarks Patient seen in day room with medical student Lucy, chart reviewed, patient calm pleasant denies suicidality homicidality voices or visions. Is compliant with his medications. Now continue treatment await word on placement Review of Systems Except as stated in HPI: all other systems reviewed are Neg Objective Alert: Yes Odum: Person Mood: Calm, Depressed Affect: Restricted Memory Intact: Comment (very poor) Hallucinations: Other Delusions: No Delusion Type: Other (loudly vigilant) Suicidal: Intent (vague) Homicidal: Ideation Insight/Judgement Poor Vitals/IOs Vital Signs Date Time Temp Pulse Resp B/P Pulse Ox O2 Delivery O2 Flow Rate FiO2 09/21/16 06:16 97.8 57 16 98/50 97 Intake and Output 09/20/16 09/20/16 09/21/16 08:00 16:00 00:00 Intake Total 840 ml Balance 840 ml Assessment & Plan Problem List: (1) Major depressive disorder, recurrent, severe with psychotic features ICD Code: F33.3 (2) Dementia w behavior dist ICD Code: F03.91 Assessment & Plan Estimated LOS: days patient continues somewhat depressed and confused though overall no behavior problems. Compliant medications Justification for Cont. Inpt. At this time patient will decompensate if placed in the lower level of care Discharge Planning To be determined Request HC Surrog/Guard Advoc?: No Javid Bran MD Sep 21, 2016 12:03
[2016-09-21] MEDS ORDERED: Artificial Tears Opth Soln EACH EYE (13:27)
[2016-09-21] MEDS ORDERED: DOCU1CAP39 PO (13:27)
[2016-09-21] MEDS ORDERED: Spironolactone PO (13:27)
[2016-09-21] MEDS ORDERED: MACR100C2 PO (13:27)
[2016-09-21] MEDS ORDERED: ESCI20TA PO (13:27)
[2016-09-21] MEDS ORDERED: PRED10 PO (13:27)
[2016-09-21] MEDS ORDERED: CETI10 PO (13:27)
[2016-09-21] MEDS ORDERED: FURO1TAB60 PO (13:27)
[2016-09-21] MEDS ORDERED: QUET1TAB9 PO (13:27)
[2016-09-21] MEDS ORDERED: LEVEMIR SQ (13:27)
[2016-09-21] MEDS ORDERED: CYAN1000P IM (13:27)
[2016-09-21] MEDS ORDERED: AMLO10 PO (13:27)
[2016-09-21] MEDS ORDERED: PANT40TA3 PO (13:27)
[2016-09-21] MEDS ORDERED: IPRASOL NEB (13:27)
[2016-09-21] MEDS ORDERED: VENL75XR PO (13:27)
[2016-09-21] MEDS ORDERED: SYMB160A INH (13:27)
[2016-09-21] MEDS ORDERED: TRAZ50TA12 PO (13:27)
[2016-09-21] MEDS ORDERED: LATA.005%O EACH EYE (13:27)
[2016-09-21] MEDS ORDERED: FAMO20TA2 PO (13:27)
[2016-09-21] MEDS ORDERED: LISI-515 PO (13:27)
[2016-09-21] MEDS ORDERED: METO-309 PO (13:27)
[2016-09-21] MEDS ORDERED: BETH10 PO (13:27)
--- NOTE | 2016-09-21 13:36 | HHI.DS ---
Psychiatry Discharge Summary Inpatient Psychiatric care?: Yes Advance Directive: Yes Mental Health AdvanceDirective: No Health Care Proxy: No Admission Admission Date Sep 13, 2016 at 01:36 Admission Diagnosis: (1) Major depressive disorder, recurrent, severe with psychotic features ICD Code: F33.3 (2) Dementia w behavior dist ICD Code: F03.91 Brief History Patient is a 66-year-old Afro-Nepalese male initially brought to [facility] after suicide attempt by inhaling aerosol deodorant spray patient was Garcia acted at that facility dated 09/12/19 by a Scottie Dempsey at 1830 p.m. stating in the old deodorant aerosol spray as a suicidal attempt. Patient seen screen of at ED urine toxicology negative bladder alcohol level negative. At the present time patient sitting quietly in his room with nurse Thang and myself. Patient is alert to self and place though somewhat confused as to time and situation. Is a was somewhat confusing history about perhaps living in a [facility] at this time is uncertain how long he has been there. He does see his head increased depression stating his adult son of less than a year ago is causing him to be depressed, also recalling the of other patient's in his family of origin. He states he does sleep okay and his appetite is okay, there is some increased social isolation and some irritability. There is a the past week or 2 the increase suicidal ideation. With the suicide attempt. Denies any alcohol or drug use related to this. Of interest patient has extensive EMR record with us here at [place] is been documentation of various suicide attempts in the past few years including ingestion of bleach twice. I did do a consultation on this gentleman in the summer of 2012 for similar episode. Patient also has a past history though a long history of cocaine abuse with multiple positive urine toxicology's at this facility. He also has been followed for multiple medical conditions including COPD diabetes. Patient stated that sometime in this in the fairly recent past he did have a visual hallucination of his father coming into his room. At this time patient does meet criteria for involuntary psychiatric hospitalization under the Garcia act I'll do first opinion requests second opinion. Though I do feel he has capacity to work with us related to his medication. We will have a hospitalist consult was patient does have an extensive medication reconciliation list. The need to gain further information about patient's living situation also. For now we'll continue her psychotropic medications no change Tobacco Use In Past 30 Days: No Tobacco Past 30 Days Alcohol Use: Never Hospital Course Patient showed cooperation with his treatment, milieu, and medication from day of admission. His suicidality resolved fairly quickly, his mild diffuse confusion remained though overall he was no behavioral problems. The difficulty was keeping control of his dietary requests for hamburger and tamazight fries while on an 1800-calorie diabetic diet. Though he was compliant with his diet and his oral intake. He continues to denies suicidality homicidality voices or visions. Placement has been arranged for this gentleman at [facility]. At this time passes [facility] maximum benefit of this hospitalization thus will be discharged to [facility] 1 month follow-up [facility] and the medical services through the facility Results Blood Pressure 98 / 50 Vital Signs Date Time Temp Pulse Resp B/P Pulse Ox O2 Delivery O2 Flow Rate FiO2 09/21/16 06:16 97.8 57 16 98/50 97 Please see EMR for lab results Summary of Procedures None done Imaging Last Impressions Abdomen/Pelvis CT 09/17/16 0000 Signed Impressions: Service Date/Time: Saturday, September 17, 2016 21:10 - CONCLUSION: 1. No acute abnormality demonstrated. 2. Previously seen fatty infiltration of the liver appears essentially resolved. Subcentimeter hypodensity right hepatic lobe probably a cyst. 3. Fat containing umbilical hernia, not significantly changed. 4. Incidentally seen bilateral gynecomastia. Javid Duncan MD Abdomen Ultrasound 09/16/16 0000 Signed Impressions: Service Date/Time: Friday, September 16, 2016 19:43 - CONCLUSION: Hepatomegaly and steatosis. Tiny gallbladder polyp. Javid Siddiqi MD Chest X-Ray 09/14/16 0000 Signed Impressions: Service Date/Time: Wednesday, September 14, 2016 15:15 - CONCLUSION: ` No acute cardiopulmonary disease. Sadi Olivas MD Pending results at discharge: No Medications # of Antipsychotic meds at D/C: 1 Approp Antipsych med options 1 - Minimum of three failed multiple trials of monotherapy. 2 - Documented plan to taper to monotherapy due to previous use of multiple meds OR cross-taper in progress at D/C. 3 - Documentation of augmentation of Clozapine. 4 - Justification other than those listed in allowable values 1-3, document here : Discharge Discharge Date: Sep 21, 2016 Discharge Diagnosis: (1) Dementia w behavior dist Diagnosis: Secondary ICD Code: F03.91 (2) Major depressive disorder, recurrent, severe with psychotic features Diagnosis: Principal ICD Code: F33.3 Mental Status Exam at Disch Alert fairly well oriented Afro-Nepalese male, normal active, mood is euthymic to somewhat restricted, affect shows decreased range and intensity, and no auditory or visual hallucinations no delusions noted speech rate and rhythm Ms. Cervantes is mildly tangential, insight and judgment is poor cognition is somewhat limited Pt Condition on Discharge: Stable Discharge Disposition: Discharge to SNF Discharge Instructions Diet Instructions: Diabetic Diet Additional Diet Instructions: 1800-calorie diabetic diet Activities you can perform: Regular-No Restrictions Scheduled Appointment: [facility] ([place]) Discharge Time <= 30 minutes Discharge/Advance Care Plan Health Problems: (1) Major depressive disorder, recurrent, severe with psychotic features (2) Dementia w behavior dist Goals to promote your health * To prevent worsening of your condition and complications * To maintain your health at the optimal level Directions to meet your goals Take your medications as prescribed Follow your dietary instruction Follow activity as directed Keep your appointments as scheduled Take your immunizations and boosters as scheduled If your symptoms worsen call your PCP, if no PCP go to Urgent Care Center or Emergency Room For 25/03 questions related to your inpatient stay or results of tests pending at discharge, please contact Dr. Javid Bran at Smoking is Dangerous to Your Health. Avoid second hand smoking Javid Bran MD Sep 21, 2016 13:36
== END 2016-09-21 17:10 | DRG 885 ==
LOC: H250 01:36
PROVIDERS: ADMIT Psychiatry & Neurology Psychiatry; ATTEND Psychiatry & Neurology Psychiatry
DX: F33.3 Major depressive disorder, recurrent, severe with psychotic symptoms (principal); N17.9 Acute kidney failure, unspecified; F03.91 Unspecified dementia, unspecified severity, with behavioral disturbance; I42.9 Cardiomyopathy, unspecified; N39.0 Urinary tract infection, site not specified; E11.22 Type 2 diabetes mellitus with diabetic chronic kidney disease; Z91.5 Personal history of self-harm; N18.9 Chronic kidney disease, unspecified; I12.9 Hypertensive chronic kidney disease with stage 1 through stage 4 chronic kidney disease, or unspecified chronic kidney disease; J44.9 Chronic obstructive pulmonary disease, unspecified; M19.90 Unspecified osteoarthritis, unspecified site; K21.9 Gastro-esophageal reflux disease without esophagitis; J45.909 Unspecified asthma, uncomplicated; I50.9 Heart failure, unspecified; E78.5 Hyperlipidemia, unspecified; F41.9 Anxiety disorder, unspecified; F17.210 Nicotine dependence, cigarettes, uncomplicated; G89.29 Other chronic pain; E66.9 Obesity, unspecified; Z68.37 Body mass index [BMI] 37.0-37.9, adult; K42.9 Umbilical hernia without obstruction or gangrene; N62 Hypertrophy of breast
CPT/HCPCS: 71020; 74176; 76700; 80048; 80053; 81001; 82948; 83036; 83690; 83735; 83880; 85025; 94150; 94640; 94664; J1815; J3420; J7512; Q9963

== ENCOUNTER 2017-08-07 01:19 | Inpatient (IN) | payer MEDICARE, OTHER ==
[2017-08-07] VITALS (11 sets, daily range): BP systolic 93–140; BP diastolic 51–76; PULSE 78–103; RESP 16–20; TEMP 96.5–98.7; O2SAT 96–100
[~2017-08-07] VITALS: Ht 172.7 cm; Wt 104.0 kg
[~2017-08-07 01:19] MED LIST changes: +AMLO10 PO; +Artificial Tears Opth Soln EACH EYE; +BETH10 PO; +CYAN1000P IM; +DOCU1CAP39 PO; +ESCI20TA PO; +FAMO20TA2 PO; +FURO1TAB60 PO; -FURO1TAB93 PO; +IPRASOL NEB; +LATA.005%O EACH EYE; +LEVEMIR SQ; -LEXA20TA PO; +LISI-515 PO; +MACR100C2 PO; +METO-309 PO; +PANT40TA3 PO; +PRED10 PO; -PROT40TA PO; +QUET1TAB9 PO; -SERO200T PO; +SYMB160A INH; +Spironolactone PO; +TRAZ50TA12 PO; -VENL75 PO; +VENL75XR PO; -VITA100020 IM
[2017-08-07] MEDS ORDERED: SODIUM CHLOR 0.9% 1000 ML INJ 1,000 ML IV ONE (01:30)
[2017-08-07] MEDS ORDERED: SODIUM CHLORIDE 0.9% FLUSH 10 ML FLUSH IVF PRN (01:30)
[2017-08-07] MEDS ORDERED: SODIUM CHLOR 0.9% 250 ML INJ 250 ML IV ONE (02:15)
[2017-08-07 02:23] LABS: INTERNATIONAL NORMALIZED RATIO 1.4 RATIO
[2017-08-07] MEDS ORDERED: D 101000 (02:36)
[2017-08-07] MEDS ORDERED: MIRA3350 PO (02:36)
[2017-08-07] MEDS ORDERED: NAME10TA PO (02:36)
[2017-08-07] MEDS ORDERED: ADVA250A INH (02:36)
[2017-08-07] MEDS ORDERED: OMEP20TA93 PO (02:36)
[2017-08-07] MEDS ORDERED: METF500T PO (02:36)
[2017-08-07] MEDS ORDERED: [UNRECOGNIZED DRUG - CODE] (02:36)
[2017-08-07] MEDS ORDERED: NORC5TAB PO (02:36)
[2017-08-07] MEDS ORDERED: NOVOLOGP2 SQ (02:36)
[2017-08-07] MEDS ORDERED: PHEN60SU RECTAL (02:36)
[2017-08-07] MEDS ORDERED: SPIR25 PO (02:36)
[2017-08-07] MEDS ORDERED: IOHEXOL 350 MG/ML 10 ML VIAL (for RAD DIAG) IVCONTRAST ONE (03:25)
--- NOTE | 2017-08-07 03:40 | RADRPT ---
EXAM DATE/TIME: 08/07/2017 03:07 [facility] COMPARISON: No previous studies available for comparison. INDICATIONS : Shortness of breath. IV CONTRAST: 100 cc Omnipaque 350 (iohexol) IV ; Cumulative dose for multiple exams. RADIATION DOSE: 16.87 CTDIvol (mGy) MEDICAL HISTORY : Cardiovascular disease. Hypertension. Chronic obstructive pulmonary disease. SURGICAL HISTORY : None. ENCOUNTER: Initial ACUITY: 1 day PAIN SCALE: 0/10 LOCATION: Bilateral chest TECHNIQUE: Volumetric scanning of the chest was performed using a pulmonary embolism protocol MIP images were re constructed. Using automated exposure control and adjustment of the mA and/or kV according to patien t size, radiation dose was kept as low as reasonably achievable to obtain optimal diagnostic quality images. DICOM format image data is available electronically for review and comparison. Follow-up recommendations for detected pulmonary nodules are based at a minimum on nodule size and pa tient risk factors according to Fleischner Society Guidelines. FINDINGS: PULMONARY ARTERIES: No filling defects are seen in the pulmonary arteries through the segmental level. LUNGS: There is no consolidation or pneumothorax . No concerning pulmonary nodule is visualized. PLEURAE: There is no pleural thickening or pleural effusion. MEDIASTINUM: There is good visualization of the great vessels of the middle mediastinum. No evidence of mediastin al or hilar adenopathy/mass. MUSCULOSKELETAL: Within normal limits for patient age. MISCELLANEOUS: The visualized upper abdominal organs demonstrate no acute abnormality. CONCLUSION: Negative exam with no pulmonary emboli. Ray Blevins MD on August 07, 2017 at 3:36 Board Certified Radiologist. This report was verified electronically.
--- NOTE | 2017-08-07 03:43 | RADRPT ---
EXAM DATE/TIME: 08/07/2017 03:04 [facility] COMPARISON: No previous studies available for comparison. INDICATIONS : Dizziness. RADIATION DOSE: 56.35 CTDIvol (mGy) MEDICAL HISTORY : Stroke. Cardiovascular disease Hypertension. SURGICAL HISTORY : None. ENCOUNTER: Initial ACUITY: 1 day PAIN SCALE: 1/10 LOCATION: cranial TECHNIQUE: Multiple contiguous axial images were obtained of the head. Using automated exposure control and adj ustment of the mA and/or kV according to patient size, radiation dose was kept as low as reasonably a chievable to obtain optimal diagnostic quality images. DICOM format image data is available electro nically for review and comparison. FINDINGS: CEREBRUM: The ventricles are normal for age. No evidence of midline shift, mass lesion, hemorrhage or acute in farction. No extra-axial fluid collections are seen. POSTERIOR FOSSA: The cerebellum and brainstem are intact. The 4th ventricle is midline. The cerebellopontine angle i s unremarkable. EXTRACRANIAL: The visualized portion of the orbits is intact. SKULL: The calvaria is intact. No evidence of skull fracture. CONCLUSION: Negative noncontrast CT Ray Blevins MD on August 07, 2017 at 3:40 Board Certified Radiologist. This report was verified electronically.
[2017-08-07] MEDS ORDERED: CALCIUM CHLORIDE INJ 1 GM in SODIUM CHLORIDE 0.9% INJ 90 ML IV ONE (03:45)
[2017-08-07] MEDS ORDERED: POTASSIUM CHLORIDE 20 MEQ CONTROLLED RELEASE TAB PO ONE ×2 (03:45→05:30)
[2017-08-07] MEDS ORDERED: CALCIUM CARBONATE 500 MG CHEWABLE TAB CHEW ONE (03:45)
--- NOTE | 2017-08-07 03:45 | RADRPT ---
EXAM DATE/TIME: 08/07/2017 03:09 [facility] COMPARISON: No previous studies available for comparison. INDICATIONS : Abdomen pain. IV CONTRAST: 100 cc Omnipaque 350 (iohexol) IV ; Cumulative dose for multiple exams. ORAL CONTRAST: No oral contrast ingested. RADIATION DOSE: 18.05 CTDIvol (mGy) MEDICAL HISTORY : Gastroesophageal reflux disease. Renal failure, chronic. Hypertension.liver disease. SURGICAL HISTORY : None. ENCOUNTER: Initial ACUITY: 1 day PAIN SCALE: 4/10 LOCATION: Bilateral abdomen Patient was premedicated for underlying contrast media allergy. TECHNIQUE: Volumetric scanning of the abdomen and pelvis was performed. Using automated exposure control and ad justment of the mA and/or kV according to patient size, radiation dose was kept as low as reasonably achievable to obtain optimal diagnostic quality images. DICOM format image data is available electro nically for review and comparison. FINDINGS: LOWER LUNGS: The visualized lower lungs are clear. LIVER: Homogeneous density without lesion. There is no dilation of the biliary tree. No calcified gallston es. There is diffuse moderate hepatic steatosis. SPLEEN: Normal size without lesion. PANCREAS: Within normal limits. KIDNEYS: Normal in size and shape. There is no mass, stone or hydronephrosis. ADRENAL GLANDS: Within normal limits. VASCULAR: There is no aortic aneurysm. BOWEL/MESENTERY: There is scattered diverticuli with no focal inflammatory change. There several loops of nondilated a ir-containing small bowel several small air-fluid levels in the pelvis. ABDOMINAL WALL: Within normal limits. RETROPERITONEUM: There is no lymphadenopathy. BLADDER: No wall thickening or mass. REPRODUCTIVE: Within normal limits. There are benign calcifications in the prostate gland. INGUINAL: There is no lymphadenopathy or hernia. MUSCULOSKELETAL: Within normal limits for patient age. CONCLUSION: 1. Mildly nonspecific, nonobstructive bowel gas pattern which may represent an ileus and/or gastroent eritis. 2. Moderate hepatic steatosis. 3. Unremarkable gallbladder. Ray Blevins MD on August 07, 2017 at 3:41 Board Certified Radiologist. This report was verified electronically.
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
[2017-08-07] MEDS ORDERED: MAGNESIUM SULFATE 1 GM PREMIX 100 ML IV ONE (05:00)
[2017-08-07] MEDS ORDERED: SODIUM CHLORIDE 0.9% FLUSH 10 ML FLUSH IV FLUSH PRN (05:15)
[2017-08-07] MEDS ORDERED: CALCIUM GLUCONATE 10% 1 GM/10 ML VIAL IV PUSH ONE (05:15)
[2017-08-07] MEDS ORDERED: NALOXONE HCL 0.4 MG/ML AMP IV PUSH PRN (05:15)
[2017-08-07] MEDS ORDERED: CALCIUM GLUCONATE INJ 2 GM in SODIUM CHLORIDE 0.9% INJ 100 ML IV ONE (06:00)
[2017-08-07 06:14] LABS: BLOOD, URINE NEG (NEG); COMMENT (UR) CULT NOT INDICATED; CULTURE IF INDICATED CULT NOT INDICATED; GLUCOSE,URINE NEG (NEG); HYALINE CAST, URINE 1 /lpf (RARE); KETONE, URINE NEG (NEG); MUCUS URINE FEW /lpf (OCC); NITRITE,URINE NEG (NEG); SQUAMOUS EPITHELIAL CELL URINE 1 /hpf (0-5); URINE COLOR LIGHT-YELLOW (YELLW/STRAW)
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
[2017-08-07] MEDS ORDERED: PANTOPRAZOLE INJ 80 MG in SODIUM CHLORIDE 0.9% INJ 100 ML IV SCH (08:00)
[2017-08-07] MEDS: MAGNESIUM SULFATE 1 GM PREMIX 100 ML IV SCH ×2 (08:23→10:49)
[2017-08-07] MEDS: SODIUM CHLORIDE 0.9% FLUSH 10 ML FLUSH IV FLUSH SCH ×2 (08:24→20:23)
--- NOTE | 2017-08-07 10:17 | EKG ---
Date Performed: 08/07/2017 Time Performed: 01:36:02 PTAGE: 67 years EKG: Sinus rhythm BORDERLINE RIGHT AXIS DEVIATION NONSPECIFIC T-WAVE ABNORMALITY ABNORMAL ECG Compared to prior tracin g no significant change DOCTOR: Juliano Kent Interpretating Date/Time 08/07/2017 10:15:30
--- NOTE | 2017-08-07 11:10 | HHI.PR ---
Subjective Remarks Follow-up for significant anemia, electrolyte imbalances. Patient is currently doing well. He still feels somewhat weak. No fever or chills. Objective Vitals Vital Signs Date Time Temp Pulse Resp B/P (MAP) Pulse Ox O2 Delivery O2 Flow Rate FiO2 08/07/17 06:13 08/07/17 06:12 96.5 79 20 106/59 (75) 96 08/07/17 04:45 97.9 86 16 97/63 98 08/07/17 04:30 98.0 82 18 111/56 98 08/07/17 03:37 82 16 116/63 (80) 98 Room Air 08/07/17 01:36 18 100 Nasal Cannula 2.00 08/07/17 01:36 100 Room Air 08/07/17 01:33 82 08/07/17 01:30 97.6 84 16 93/51 (65) 100 I/O 08/06/17 08/06/17 08/06/17 08/07/17 08/07/17 08/07/17 07:00 15:00 23:00 07:00 15:00 23:00 Intake Total 1500 ml 520 ml Balance 1500 ml 520 ml Intake IV Total 1100 ml 100 ml Packed Cells 400 ml 400 ml Blood Product IV Normal Saline Flush 20 ml Result Diagram: 08/07/17 0150 08/07/17 [address] Angiography 08/07/17 0130 Signed Impressions: Service Date/Time: Monday, August 07, 2017 03:07 - CONCLUSION: Negative exam with no pulmonary emboli. Ray Blevins MD Head CT 08/07/17 0000 Signed Impressions: Service Date/Time: Monday, August 07, 2017 03:04 - CONCLUSION: Negative noncontrast CT Ray Blevins MD Abdomen/Pelvis CT 08/07/17 0000 Signed Impressions: Service Date/Time: Monday, August 07, 2017 03:09 - CONCLUSION: 1. Mildly nonspecific, nonobstructive bowel gas pattern which may represent an ileus and/or gastroenteritis. 2. Moderate hepatic steatosis. 3. Unremarkable gallbladder. Ray Blevins MD Objective Remarks GENERAL: Alert, NAD. SKIN: Warm and dry. HEAD: Normocephalic. EYES: No scleral icterus. No injection or drainage. NECK: Supple, trachea midline. No JVD or lymphadenopathy. CARDIOVASCULAR: Regular rate and rhythm without murmurs, gallops, or rubs. RESPIRATORY: Breath sounds equal bilaterally. No accessory muscle use. GASTROINTESTINAL: Abdomen soft, non-tender, nondistended. MUSCULOSKELETAL: No cyanosis, or edema. BACK: Nontender without obvious deformity. No CVA tenderness. Procedures None. A/P Problem List: (1) Symptomatic anemia ICD Code: D64.9 - Anemia, unspecified Status: Acute (2) Hypocalcemia ICD Code: E83.51 - Hypocalcemia Status: Acute (3) Hypomagnesemia ICD Code: E83.42 - Hypomagnesemia Status: Acute (4) Hypokalemia ICD Code: E87.6 - Hypokalemia Status: Acute Assessment and Plan Mr. Solitario is a 67-year-old male who presented to the emergency department after a syncopal episode. His blood sugar was in the 70s. ED workup indicated significant anemia with hemoglobin 5.5. He was also found to have severe electrolyte imbalances including hypomagnesemia, hypocalcemia, hypokalemia. - Symptomatic anemia - Possible GI bleed - 2 units of blood transfusion ordered. - GI consult pending. Patient never underwent EGD or colonoscopy. He will likely need both. - Continue Protonix 40mg BID. D/C IV protonix. - Hypokalemia - Hypomagnesemia - Hypocalcemia - Patient received IV calcium gluconate, IV magnesium sulfate. - Magnesium was 1.0. - Will check BMP, Mg level in the AM. If needed, we will continue to replace. Full code. SCDs. Nadia Perez DO Aug 07, 2017 11:10 am
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
[2017-08-07 15:34] LABS: HEMATOCRIT 40.8 % (39.0-51.0); REVIEW FLAG FINAL
[2017-08-07] MEDS ORDERED: PEG (High)/E-LYTE SOLN 4000 ML BTL PO ONE (16:00)
[2017-08-07 16:50] LABS: BLOOD UREA NITROGEN ND MG/DL (7-18); GLOMERULAR FILTRATION RATE ND ML/MIN (>89)
[2017-08-07 16:52] LABS: CALCIUM-PROTEIN CORRECTED ND MG/DL (8.5-10.1); MAGNESIUM ND MG/DL (1.5-2.5); POTASSIUM ND MEQ/L (3.5-5.1); SODIUM (NA) ND MEQ/L (136-145)
[2017-08-07 16:53] LABS: ANION GAP ND MEQ/L (5-15); BICARBONATE ND MEQ/L (21.0-32.0); CHLORIDE ND MEQ/L (98-107)
[2017-08-07 17:12] LABS: ANION GAP 12 MEQ/L (5-15); BICARBONATE 21.2 MEQ/L (21.0-32.0); BLOOD UREA NITROGEN 16 MG/DL (7-18); CHLORIDE 102 MEQ/L (98-107); GLOMERULAR FILTRATION RATE 49 ML/MIN (>89); MAGNESIUM 2.9 MG/DL (1.5-2.5); SODIUM (NA) 135 MEQ/L (136-145)
[2017-08-07] MEDS ORDERED: ACETAMINOPHEN 325 MG TAB PO PRN (18:00)
[2017-08-07] MEDS ORDERED: INSULIN HUMAN REGULAR 1,000 UNITS/10 ML VIAL SQ PRN (19:30)
[2017-08-07] MEDS ORDERED: METOPROLOL TARTRATE 25 MG TAB PO PRN (19:30)
[2017-08-07] MEDS ORDERED: SODIUM CHLORID 0.9% 500 ML IV PRN (19:30)
[2017-08-07] MEDS ORDERED: CHLORHEXIDINE GLUCONATE 2 % 1 PACK (2 CLOTHS) TOPICAL PRN (19:30)
[2017-08-07] MEDS ORDERED: POVIDONE IODINE 5% (ANTISEPSIS KIT) 4 APPLICATIONS EACH NARE PRN (19:30)
[2017-08-07] MEDS ORDERED: LACTATED RINGER'S 1000 ML IV PRN (19:30)
[2017-08-07] MEDS: PANTOPRAZOLE SOD 40 MG DELAYED RELEASE TAB PO SCH (20:22)
[2017-08-08 00:19] VITALS: BP 112/62; PULSE 85; RESP 18; TEMP 98.3; O2SAT 98
[2017-08-08 04:52] VITALS: BP 133/63; PULSE 90; RESP 18; TEMP 98.3; O2SAT 95
[2017-08-08 07:26] LABS: FERRITIN 442 NG/ML (26-388); TRANSFERRIN IRON PROFILE 234 MG/DL (200-360)
[2017-08-08 08:30] VITALS: BP 114/58; PULSE 75; RESP 16; TEMP 98; O2SAT 99
--- NOTE | 2017-08-08 08:30 | HHI.PR ---
Subjective Remarks Follow-up for significant anemia, electrolyte imbalances. Patient is currently doing well. He was seen before he went to EGD and colonoscopy. Patient underwent EGD colonoscopy today. Patient denies any chest pain, shortness of breath, fever or chills. Objective Vitals Vital Signs Date Time Temp Pulse Resp B/P (MAP) Pulse Ox O2 Delivery O2 Flow Rate FiO2 08/08/17 04:52 98.3 90 18 133/63 (86) 95 08/08/17 00:19 98.3 85 18 112/62 (79) 98 08/07/17 21:01 97.6 89 18 140/76 (97) 99 08/07/17 18:48 98.7 95 18 114/75 (88) 97 08/07/17 13:15 99 08/07/17 12:20 98.4 103 18 115/71 (86) 98 I/O 08/07/17 08/07/17 08/07/17 08/08/17 08/08/17 08/08/17 07:00 15:00 23:00 07:00 15:00 23:00 Intake Total 1566 ml 850 ml 1550 ml Output Total 340 ml 1 ml Balance 1566 ml 510 ml 1549 ml Intake Oral 1150 ml IV Total 1166 ml 430 ml Packed Cells 400 ml 400 ml 400 ml Blood Product IV Normal Saline Flush 20 ml Output Urine Total 340 ml 1 ml # Voids 6 1 # Bowel Movements 3 Result Diagram: 08/07/17 1439 08/07/17 [address] Angiography 08/07/17 0130 Signed Impressions: Service Date/Time: Monday, August 07, 2017 03:07 - CONCLUSION: Negative exam with no pulmonary emboli. Ray Blevins MD Head CT 08/07/17 0000 Signed Impressions: Service Date/Time: Monday, August 07, 2017 03:04 - CONCLUSION: Negative noncontrast CT Ray Blevins MD Abdomen/Pelvis CT 08/07/17 0000 Signed Impressions: Service Date/Time: Monday, August 07, 2017 03:09 - CONCLUSION: 1. Mildly nonspecific, nonobstructive bowel gas pattern which may represent an ileus and/or gastroenteritis. 2. Moderate hepatic steatosis. 3. Unremarkable gallbladder. Ray Blevins MD Objective Remarks GENERAL: Alert, NAD. SKIN: Warm and dry. HEAD: Normocephalic. EYES: No scleral icterus. No injection or drainage. NECK: Supple, trachea midline. No JVD or lymphadenopathy. CARDIOVASCULAR: Regular rate and rhythm without murmurs, gallops, or rubs. RESPIRATORY: Breath sounds equal bilaterally. No accessory muscle use. GASTROINTESTINAL: Abdomen soft, non-tender, nondistended. MUSCULOSKELETAL: No cyanosis, or edema. BACK: Nontender without obvious deformity. No CVA tenderness. Procedures Colonoscopy 08/08/2017 1. Moderate diverticulosis was noted throughout the entire examined colon 2. A sessile polyp ranging between 3-5mm in size was found in the rectum; polypectomy was performed with cold forceps 3. Retroflexed views revealed internal hemorrhoids 4. Retroflexed views revealed medium internal hemorrhoids 5. Revealed external hemorrhoids EGD 08/08/2017 1. Await biopsy results. Biopsy results will not be ready for 7-10 days. If you don't hear from us in two weeks, call our office for biopsy results. 2. Anti-reflux regimen 3. Continue PPI A/P Problem List: (1) Symptomatic anemia ICD Code: D64.9 - Anemia, unspecified Status: Acute (2) Hypocalcemia ICD Code: E83.51 - Hypocalcemia Status: Acute (3) Hypomagnesemia ICD Code: E83.42 - Hypomagnesemia Status: Acute (4) Hypokalemia ICD Code: E87.6 - Hypokalemia Status: Acute Assessment and Plan Mr. Solitario is a 67-year-old male who presented to the emergency department after a syncopal episode. His blood sugar was in the 70s. ED workup indicated significant anemia with hemoglobin 5.5. He was also found to have severe electrolyte imbalances including hypomagnesemia, hypocalcemia, hypokalemia. - Symptomatic anemia - Possible GI bleed - Patient received 1 unit of blood. - Even though ED workup indicated hemoglobin 5.5. After receiving 1 unit of blood is repeat hemoglobin shows around 14. - ED hemoglobin was likely due to dilutional effect. - GI was consulted due to dark stool. Patient underwent EGD and colonoscopy on 08/08/2017. - Continue PPI. - Hypokalemia - Hypomagnesemia - Hypocalcemia - Patient received IV calcium gluconate, IV magnesium sulfate. -Magnesium today 2.2, potassium 4.0, calcium 8.2. - Acute kidney injury - creatinine improved from 1.72-->1.38. Full code. SCDs. We'll discharge patient to SNF today. Nadia Perez DO Aug 08, 2017 8:30 am
[2017-08-08] MEDS: PANTOPRAZOLE SOD 40 MG DELAYED RELEASE TAB PO SCH (09:14)
[2017-08-08] MEDS: SODIUM CHLORIDE 0.9% FLUSH 10 ML FLUSH IV FLUSH SCH (09:16)
[2017-08-08 09:49] LABS: AUTOMATED NEUTROPHIL # 4.7 TH/MM3 (1.8-7.7); BASOPHIL # 0.1 TH/MM3 (0-0.2); BASOPHIL % 0.7 % (0.0-2.0); EOSINOPHIL # 0.1 TH/MM3 (0-0.4); HEMATOCRIT 39.9 % (39.0-51.0); HEMO FLAGS DIFF FINAL; LYMPH % 40.2 % (9.0-44.0); LYMPHOCYTE # 3.8 TH/MM3 (1.0-4.8); MEAN CELL VOLUME 95.2 FL (80.0-100.0); MEAN CORPUSCULAR HEMOGLOBIN 32.5 PG (27.0-34.0); MEAN CORPUSCULAR HGB CONC 34.2 % (32.0-36.0); MONO % 8.6 % (0.0-8.0); NEUT % 49.5 % (16.0-70.0); PLATELET COUNT 205 TH/MM3 (150-450); RED BLOOD COUNT 4.19 MIL/MM3 (4.50-5.90); RED CELL DISTRIBUTION WIDTH 14.7 % (11.6-17.2); WHITE BLOOD COUNT 9.4 TH/MM3 (4.0-11.0)
[2017-08-08 10:18] LABS: MAGNESIUM 2.2 MG/DL (1.5-2.5)
[2017-08-08 10:23] LABS: INDIRECT BILIRUBIN 0.5 MG/DL (0.0-0.8); TOTAL BILIRUBIN ADULT 0.6 MG/DL (0.2-1.0)
--- NOTE | 2017-08-08 11:21 | GIPROC ---
[facility] [address] [facility]. [facility], [address] EGD PROCEDURE REPORT EXAM DATE: 08/08/2017 PATIENT NAME: David Solitario MR #: [id number] BIRTHDATE: 1950 ATTENDING: Hoang Ho MD ORDER #: [id number] [employer]LE [employer]CHOOL RESOURCE TEACHER: Miguel Ángel Ramírez and Nessa Robles STATUS: inpatient INDICATIONS: The patient is a 67 yr old male here for an EGD due to acute post hemorrhagic anemia and melena PROCEDURE PERFORMED: EGD w/ biopsy MEDICATIONS: None and Per Anesthesia. TOPICAL ANESTHETIC: CONSENT: The patient understands the risks and benefits of the procedure and understands that these risks include, but are not limited to: sedation, allergic reaction, infection, perforation and/or bleeding. Alternative means of evaluation and treatment include, among others: physical exam, x-rays, and/or surgical intervention. The patient elects to proceed with this endoscopic procedure. medical equipment was checked for proper function. Hand hygiene and appropriate measures for infection prevention was taken. After the risks, benefits and alternatives of the procedure were thoroughly explained, Informed consent was verified, confirmed and timeout was successfully executed by the treatment team. The patient was anesthetized with topical anesthesia and the EC-[id number] (Pedi C) endoscope was introduced through the mouth and advanced to the second portion of the duodenum. Retroflexed views revealed no abnormalities The gastroscope was then slowly withdrawn and removed. ESOPHAGUS: The mucosa of the esophagus appeared normal. STOMACH: There was erythematous moderate gastritis in the gastric antrum. A biopsy was performed using cold forceps. Sample sent for histology. Moderate portal hypertensive gastropathy was found in the gastric body. DUODENUM: The duodenal mucosa appeared normal in the bulb and second portion of the duodenum. ADVERSE EVENTS: There were no complications. IMPRESSIONS: 1. The esophagus appeared normal 2. There was erythematous gastritis in the gastric antrum; biopsy was performed 3. Portal hypertensive gastropathy was found in the gastric body 4. Normal duodenal mucosa in the bulb and second portion of the duodenum 5. Retroflexed views revealed no abnormalities RECOMMENDATIONS: 1. Await biopsy results. Biopsy results will not be ready for 7-10 days. If you don't hear from us in two weeks, call our office for biopsy results. 2. Anti-reflux regimen 3. Continue PPI PATIENT CONDITION: stable DISPOSITION: Inpatient REPEAT EXAM: Return 1 year EGD pending biopsy results Hoang Ho MD eSigned: Hoang Ho MD 08/08/2017 11:21 AM cc: PATIENT NAME: Altaf David Estefany MR#: [id number]
--- NOTE | 2017-08-08 11:23 | GIPROC ---
[facility] [address] [facility]. [facility], [address] COLONOSCOPY PROCEDURE REPORT EXAM DATE: 08/08/2017 PATIENT NAME: David Solitario MR #: [id number] BIRTHDATE: 1950 ENDOSCOPIST: Hoang Ho MD ORDER #: [id number] CARROT TIER: Miguel Ángel Ramírez and Nessa Robles STATUS: inpatient INDICATIONS: The patient is a 67 yr old male here for a colonoscopy due to anemia, non-specific and melena PROCEDURE PERFORMED: Colonoscopy with polypectomy MEDICATIONS: None and Per Anesthesia. PREP QUALITY: The [place] Bowel Prep Score was Right colon 2, Mid colon 2, and Left colon 3. Total = 7. PREP TYPE:GoLytely ESTIMATED BLOOD LOSS: None CONSENT: The patient understands the risks and benefits of the procedure and understands that these risks include, but are not limited to: sedation, allergic reaction, infection, perforation and/or bleeding. Alternative means of evaluation and treatment include, among others: physical exam, x-rays, and/or surgical intervention. The patient elects to proceed with this endoscopic procedure. medical equipment was checked for proper function. Hand hygiene and appropriate measures for infection prevention was taken. After the risks, benefits and alternatives of the procedure were thoroughly explained, Informed consent was verified, confirmed and timeout was successfully executed by the treatment team. A digital exam revealed external hemorrhoids The Pentax EC-[id number] endoscope was introduced through the anus and advanced to the cecum, which was identified by both the appendix and ileocecal valve. The instrument was then slowly withdrawn as the colon was fully examined. COLON FINDINGS: Moderate diverticulosis was noted throughout the entire examined colon. No bleeding was noted from the diverticulosis. A polypoid shaped sessile polyp ranging between 3-5mm in size was found in the rectum. A polypectomy was performed with cold forceps. The resection was complete and the polyp tissue was completely retrieved. Retroflexed views revealed internal hemorrhoids and Retroflexed views revealed medium internal hemorrhoids The scope was then completely withdrawn from the patient and the procedure terminated. PROCEDURE WITHDRAWAL TIME:6minutes ADVERSE EVENTS: There were no complications. IMPRESSIONS: 1. Moderate diverticulosis was noted throughout the entire examined colon 2. A sessile polyp ranging between 3-5mm in size was found in the rectum; polypectomy was performed with cold forceps 3. Retroflexed views revealed internal hemorrhoids 4. Retroflexed views revealed medium internal hemorrhoids 5. Revealed external hemorrhoids RECOMMENDATIONS: 1. Await biopsy results. Biopsy results will not be ready for 7-10 days. If you don't hear from us in two weeks, call our office for results. 2. Benefiber 2 tsp daily 3. Continue surveillance 4. Yearly hemoccult 5. No seeds, nuts and popcorn in diet RECALL: Return 3 years Colonoscopy, pending biopsy results Hoang Ho MD eSigned: Hoang Ho MD 08/08/2017 11:23 AM cc: PATIENT NAME: David Solitario MR#: [id number]
[2017-08-08] MEDS ORDERED: METF500T PO (12:00)
[2017-08-08 12:40] VITALS: BP 136/79; PULSE 79; RESP 16; TEMP 98.3; O2SAT 97
--- NOTE | 2017-08-08 14:46 | HHI.DS ---
Discharge Summary Admission Date Aug 07, 2017 at 5:12 am Discharge Date: Aug 08, 2017 Admitting Diagnosis symptomatic anemia, fall, hypocalcemia, hypomagnesemia, hypokalemia (1) Symptomatic anemia ICD Code: D64.9 - Anemia, unspecified Status: Acute (2) Hypocalcemia ICD Code: E83.51 - Hypocalcemia Status: Acute (3) Hypomagnesemia ICD Code: E83.42 - Hypomagnesemia Status: Acute (4) Hypokalemia ICD Code: E87.6 - Hypokalemia Status: Acute Procedures Colonoscopy 08/08/2017 1. Moderate diverticulosis was noted throughout the entire examined colon 2. A sessile polyp ranging between 3-5mm in size was found in the rectum; polypectomy was performed with cold forceps 3. Retroflexed views revealed internal hemorrhoids 4. Retroflexed views revealed medium internal hemorrhoids 5. Revealed external hemorrhoids EGD 08/08/2017 1. Await biopsy results. Biopsy results will not be ready for 7-10 days. If you don't hear from us in two weeks, call our office for biopsy results. 2. Anti-reflux regimen 3. Continue PPI Brief History - From Admission History from patient, ER physician communication, review of medical records, and transfer notes from [facility]. lives at longterm was in bathroom , moved bm and felt dizzy and fell backwards and passed out staff came and called [facility] reported low BP on arrival was short of breath as well , had pain in left lower quadrant abdomen no fever no nasuea/ no vomiting/ no diarrhea black color stools for months- not sure if he takes iron pills no fever, no burning or pain CBC/BMP: 08/08/17 0846 08/08/17 0846 Significant Findings Laboratory Tests Test 08/07/17 01:50 08/07/17 05:40 08/07/17 13:00 08/07/17 14:39 Prothrombin Time 14.0 SEC (9.8-11.6) Urine Specific [place] 1.040 (1.002-1.035) Urine Protein 30 mg/dL (NEG-TRACE) Urine Leukocyte Esterase SMALL (NEG) Urine Mucus FEW /lpf (OCC) Creatinine 1.72 MG/DL (0.60-1.30) Random Glucose 213 MG/DL (74-106) Magnesium Level 2.9 MG/DL (1.5-2.5) Sodium Level 135 MEQ/L (136-145) Estimat Glomerular Filtration Rate 49 ML/MIN (>89) Ferritin 442 NG/ML (26-388) Troponin I LESS THAN 0.02 NG/ML Test 08/08/17 08:46 Red Blood Count 4.19 MIL/MM3 (4.50-5.90) Monocytes (%) (Auto) 8.6 % (0.0-8.0) Creatinine 1.38 MG/DL (0.60-1.30) Random Glucose 139 MG/DL (74-106) Calcium Level 8.2 MG/DL (8.5-10.1) Aspartate Amino Transf (AST/SGOT) 47 U/L (15-37) Estimat Glomerular Filtration Rate 63 ML/MIN (>89) Imaging Last Impressions CT Angiography 08/07/17 0130 Signed Impressions: Service Date/Time: Monday, August 07, 2017 03:07 - CONCLUSION: Negative exam with no pulmonary emboli. Ray Blevins MD Head CT 08/07/17 0000 Signed Impressions: Service Date/Time: Monday, August 07, 2017 03:04 - CONCLUSION: Negative noncontrast CT Ray Blevins MD Abdomen/Pelvis CT 08/07/17 0000 Signed Impressions: Service Date/Time: Monday, August 07, 2017 03:09 - CONCLUSION: 1. Mildly nonspecific, nonobstructive bowel gas pattern which may represent an ileus and/or gastroenteritis. 2. Moderate hepatic steatosis. 3. Unremarkable gallbladder. Ray Blevins MD PE at Discharge GENERAL: Alert, NAD. SKIN: Warm and dry. HEAD: Normocephalic. EYES: No scleral icterus. No injection or drainage. NECK: Supple, trachea midline. No JVD or lymphadenopathy. CARDIOVASCULAR: Regular rate and rhythm without murmurs, gallops, or rubs. RESPIRATORY: Breath sounds equal bilaterally. No accessory muscle use. GASTROINTESTINAL: Abdomen soft, non-tender, nondistended. MUSCULOSKELETAL: No cyanosis, or edema. BACK: Nontender without obvious deformity. No CVA tenderness. Pt update on day of discharge Patient is currently doing well. No acute concerns. Hospital Course Mr. Solitario is a 67-year-old male who presented to the emergency department after a syncopal episode. His blood sugar was in the 70s. ED workup indicated significant anemia with hemoglobin 5.5. He was also found to have severe electrolyte imbalances including hypomagnesemia, hypocalcemia, hypokalemia. - Symptomatic anemia - Possible GI bleed - Patient received 1 unit of blood. - Even though ED workup indicated hemoglobin 5.5. After receiving 1 unit of blood is repeat hemoglobin shows around 14. - ED hemoglobin was likely due to dilutional effect. - GI was consulted due to dark stool. Patient underwent EGD and colonoscopy on 08/08/2017. - Continue PPI. - Hypokalemia - Hypomagnesemia - Hypocalcemia - Patient received IV calcium gluconate, IV magnesium sulfate. -Magnesium today 2.2, potassium 4.0, calcium 8.2. - Acute kidney injury - creatinine improved from 1.72-->1.38. Full code. SCDs. Pt Condition on Discharge: Good Discharge Disposition: Discharge to SNF Discharge Time: > 30 minutes Discharge Instructions DIET: Follow Instructions for: Heart Healthy Diet Activities you can perform: Regular-No Restrictions Follow up Referrals: Gastroenterology - 2 Weeks with Hoang Ho MD [facility]/ - 1 Week Changed Medications: Metformin (Metformin) 500 Mg Tab 500 MG PO BID for Blood Sugar Management, #60 TAB 3 Refills (Changed from: DAILY ; 30; Refills: 0) With a meal Continued Medications: Bethanechol (Urecholine) 10 Mg Tab 10 MG PO TID for health, #90 TAB 0 Refills Calcium Carb/Vit D3/Minerals (Cvs Calcium Chewables Plus Tab) 600 Mg-200 Tab.chew Cetirizine (Cetirizine) 10 Mg Tab 10 MG PO DAILY for health, #30 TAB 0 Refills Cholecalciferol (D 1000) 1,000 Unit Cap Docusate Sodium (Dok) 100 Mg Cap 100 MG PO BID for health, #60 CAP 0 Refills Escitalopram (Escitalopram) 20 Mg Tab 20 MG PO DAILY for health, #30 TAB 0 Refills Fluticasone-Salmeterol Inh (Advair Diskus Inh) 250-50 Mcg/Blist Aer 1 PUFF INH BID, #1 INHALER 0 Refills Rinse mouth after use. Ipratropium-Albuterol Neb (Duoneb) 0.5-2.5 Mg/3 Ml Neb 1 AMPULE NEB Q8HR NEB for health, #1 ML 0 Refills Latanoprost Opth Drops (Xalatan Opth Drops) 0.005% Drops 1 DROP EACH EYE HS for health, #1 ML 0 Refills Memantine (Namenda) 10 Mg Tab 10 MG PO BID for Alzheimer Disease, #30 TAB 0 Refills Omeprazole (Omeprazole) 20 Mg Tab 20 MG PO DAILY, #30 TAB 0 Refills Phenylephrine-[place] Butter Supp (Preparation H Supp) 0.25-88.44 % Supp 1 SUPP RECTAL QID PRN for INFLAMMATION, SUPP 0 Refills Polyethylene Glycol 3350 Powder (Miralax Powder) 17 Gm Powd 17 GM PO DAILY for Constipation, #1 CAN 0 Refills Mix and dissolve one measuring cap-ful (17 grams) in water or juice. Quetiapine (Quetiapine) 200 Mg Tab 200 MG PO HS for health, #30 TAB 0 Refills Venlafaxine ER 24 HR (Effexor XR 24 HR) 75 Mg Cap 75 MG PO DAILY for health, #30 CAP 0 Refills [Artificial Tears Opth Soln] () 300 DROP/15 ML SOLN 1 DROP EACH EYE BID for health, #1 BOTTLE 0 Refills Discontinued Medications: Amlodipine (Norvasc) 10 Mg Tab 10 MG PO DAILY for health, #30 TAB 0 Refills Cyanocobalamin Inj (Cyanocobalamin Inj) 1,000 Mcg/Ml Inj 1000 MCG IM Q30D for health, #1 INJECTION 0 Refills Furosemide (Lasix) 40 Mg Tab 40 MG PO DAILY for health, #30 TAB 0 Refills Hydrocodone-Acetaminophen ([place]) 5 Mg-325 Mg Tab 1 TAB PO Q6H PRN for PAIN, TAB 0 Refills Insulin Aspart Inj (Novolog Inj) 1,000 Unit/10 Ml Vial 0 SQ DIRECTED for Blood Sugar Management, #10 ML 0 Refills Sliding Scale as directed. Insulin Detemir Inj (Levemir Inj) 1,000 unit/ 10 ML Vial 18 UNITS SQ HS for health, #1 INJECTION 0 Refills Lisinopril (Lisinopril) 20 Mg Tab 20 MG PO DAILY for health, #30 TAB 0 Refills Metoprolol Tartrate (Lopressor) 50 Mg Tab 50 MG PO BID for health, #60 TAB 0 Refills Spironolactone (Aldactone) 25 Mg Tab 25 MG PO DAILY, #30 TAB 0 Refills Nadia Perez DO Aug 08, 2017 2:46 pm
[2017-08-08 16:25] VITALS: BP 136/69; PULSE 88; RESP 18; TEMP 98.2; O2SAT 98
== END 2017-08-08 17:38 | DRG 378 ==
LOC: NEPC 01:19 → NEDA 05:12 → N05A 06:01
PROVIDERS: ADMIT Hospitalist; ATTEND Hospitalist
PROC: 30233N1 Transfusion of Nonautologous Red Blood Cells into Peripheral Vein, Percutaneous Approach (ICD-10-PCS; principal; 2017-08-07)
PROC: 0DB68ZX Excision of Stomach, Via Natural or Artificial Opening Endoscopic, Diagnostic (ICD-10-PCS; 2017-08-08)
PROC: 0DBP8ZX Excision of Rectum, Via Natural or Artificial Opening Endoscopic, Diagnostic (ICD-10-PCS; 2017-08-08 10:57)
DX: K92.2 Gastrointestinal hemorrhage, unspecified (principal); N17.9 Acute kidney failure, unspecified; I42.9 Cardiomyopathy, unspecified; K76.6 Portal hypertension; F03.90 Unspecified dementia, unspecified severity, without behavioral disturbance, psychotic disturbance, mood disturbance, and anxiety; I50.9 Heart failure, unspecified; I13.0 Hypertensive heart and chronic kidney disease with heart failure and stage 1 through stage 4 chronic kidney disease, or unspecified chronic kidney disease; E11.22 Type 2 diabetes mellitus with diabetic chronic kidney disease; N18.3 Chronic kidney disease, stage 3 (moderate); D62 Acute posthemorrhagic anemia; R55 Syncope and collapse; K62.1 Rectal polyp; K64.4 Residual hemorrhoidal skin tags; E83.41 Hypermagnesemia; K64.8 Other hemorrhoids; K57.90 Diverticulosis of intestine, part unspecified, without perforation or abscess without bleeding; E83.42 Hypomagnesemia; E83.51 Hypocalcemia; J44.9 Chronic obstructive pulmonary disease, unspecified; M19.90 Unspecified osteoarthritis, unspecified site; F31.9 Bipolar disorder, unspecified; F41.9 Anxiety disorder, unspecified; E78.00 Pure hypercholesterolemia, unspecified; K21.9 Gastro-esophageal reflux disease without esophagitis; Z87.442 Personal history of urinary calculi; I25.2 Old myocardial infarction; E87.6 Hypokalemia; H54.61 Unqualified visual loss, right eye, normal vision left eye; I69.328 Other speech and language deficits following cerebral infarction; G47.00 Insomnia, unspecified; E26.1 Secondary hyperaldosteronism; Z87.891 Personal history of nicotine dependence; I25.10 Atherosclerotic heart disease of native coronary artery without angina pectoris; Z95.5 Presence of coronary angioplasty implant and graft; K31.89 Other diseases of stomach and duodenum; K29.70 Gastritis, unspecified, without bleeding
CPT/HCPCS: 36430; 70450; 71275; 74177; 80048; 80076; 81001; 82728; 82948; 83540; 83550; 83735; 84155; 84484; 85007; 85014; 85018; 85025; 85027; 85610; 86850; 86900; 86901; 86920; 87040; 88305; 88312; 93005; C9113; J0610; J3475; J7030; J7050; P9016; Q9967